=== PATIENT | male | born 1980 | race Caucasian/White ===

== ENCOUNTER 2019-02-01 11:42 | Emergency (ER) | payer MEDICARE, OTHER ==
[~2019-02-01] VITALS: Ht 185.4 cm; Wt 99.8 kg
[~2019-02-01 11:42] MED LIST: ARIP10; BENZ1; BENZ2; CEPH500 PO; CLON.5; CLOZ100; CLOZ25; DIPH50; DIVA250EC PO; DIVA500EC; DOCU100; DULO60; DULO60 PO; ESCI20; FLUO20 PO; HALDOL; HALO5; HYDACE25S PR; HYDACE5 PO; IBUP800 PO; NAPR550 PO; OXYACE5T PO; PARO20; PRAHYD1AE TOP; QUET200; RISP2; RISP3 PO; RISP4; RISP4 PO; RISPERDAL CONSTA IM; SERT50; SULTRIDS PO; TRAM50 PO; [UNRECOGNIZED DRUG - REMARK]; [UNRECOGNIZED DRUG - REMARK]
[2019-02-01] MEDS ORDERED: CHLO10T (14:11)
[2019-02-01] MEDS ORDERED: Anti-Diarrheal2 MG (14:11)
[2019-02-01] MEDS ORDERED: Benadryl 50 mg50 MG PO (14:20)
[2019-02-01] MEDS ORDERED: Pepcid40 MG PO (14:20)
[2019-02-01] MEDS ORDERED: PRED10 PO (14:20)
== END 2019-02-01 14:29 | disposition home or self-care (01) ==
LOC: ER 11:42
DX: L25.9 Unspecified contact dermatitis, unspecified cause (principal); F20.9 Schizophrenia, unspecified; F31.9 Bipolar disorder, unspecified; Z91.011 Allergy to milk products; Z79.899 Other long term (current) drug therapy
CPT/HCPCS: J7512; Q0163

== ENCOUNTER 2019-03-15 10:01 | Observation (INO) | payer MEDICARE, OTHER ==
[~2019-03-15] VITALS: Ht 182.9 cm; Wt 90.7 kg
[~2019-03-15 10:01] MED LIST changes: +Anti-Diarrheal2 MG; +Benadryl 50 mg50 MG PO; +CHLO10T; +PRED10 PO; +Pepcid40 MG PO
[2019-03-15 13:19] LABS: BASOPHILS ABSOLUTE AUTO 0.02 K/mm3 (0.00-0.23); BASOPHILS PERCENT AUTO 0 % (0-2); EOSINOPHILS ABSOLUTE AUTO 0.14 K/mm3 (0.00-0.68); EOSINOPHILS PERCENT AUTO 2 % (0-6); Hemoglobin 13.2 g/dL (13.5-17.5); IMMATURE GRAN ABSOLUTE AUTO 0.02 K/mm3 (0.00-0.10); IMMATURE GRAN PERCENT AUTO 0 % (0-1); LYMPHOCYTES ABSOLUTE AUTO 2.14 K/mm3 (0.84-5.20); LYMPHOCYTES PERCENT AUTO 29 % (21-46); MONOCYTES ABSOLUTE AUTO 0.54 K/mm3 (0.16-1.47); MONOCYTES PERCENT AUTO 7 % (4-13); Mean Corpuscular HGB 26.9 pg (26.0-34.0); Mean Corpuscular HGB Conc 32.2 g/dL (31.5-36.5); Mean Corpuscular Volume 84 fL (80-100); Mean Platelet Volume 11.7 fL (9.1-12.4); NEUTROPHILS ABSOLUTE AUTO 4.55 K/mm3 (1.96-9.15); NEUTROPHILS PERCENT AUTO 61 % (41-73); Platelet Count 219 K/mm3 (150-400); RDW Coefficient Variation 15.2 % (11.7-14.2); RDW Standard Deviation 46.7 fL (35.1-46.3); Red Blood Cell Count 4.91 M/mm3 (4.30-5.90); White Blood Cell Count 7.41 K/mm3 (4.00-11.30)
[2019-03-15 13:45] LABS: Acetaminophen, Random <2.0 ug/mL (10.0-30.0); Alanine Aminotransfer (ALT/SGP 15 U/L (12-78); Albumin, Blood 3.4 g/dL (3.4-5.0); Albumin/Globulin Ratio 1.2 (0.8-1.8); Alk Phos 71 U/L (50-136); Anion Gap 7 mmol/L (6-16); Aspartate Aminotrans (AST/SGOT 9 U/L (12-37); Bilirubin, Total 0.7 mg/dL (0.1-1.0); Blood Urea Nitrogen 13 mg/dL (8-24); Bun/Creatinine Ratio 17.4 (12.0-20.0); CO2, Blood 25 mmol/L (21-32); Calcium, Blood 8.4 mg/dL (8.5-10.1); Chloride, Blood 109 mmol/L (98-108); Creatinine, Blood 0.75 mg/dL (0.60-1.20); Ethanol (Alcohol), Blood, Med <3 mg/dL; Globulin, Blood 2.9 g/dL (2.2-4.0); Glomerular Filtration Rate >60 (60-); Glucose, Blood 78 mg/dL (70-99); Potassium, Blood 3.9 mmol/L (3.5-5.5); Salicylate 4.5 mg/dL (2.8-20.0); Sodium, Blood 141 mmol/L (136-145); Total Protein, Blood 6.3 g/dL (6.4-8.2)
[2019-03-15 13:50] LABS: Thyroid Stimulating Hormone 0.429 uIU/mL (0.360-4.800)
[2019-03-16 16:52] LABS: Source, Urine Voided
[2019-03-16 16:56] LABS: Blood, Urine Neg (Neg); Glucose Qualitative, Urine Neg (Neg); Ketones, Urine 1+ (Neg); Leukocyte Esterase, Urine 1+ (Neg); Nitrite, Urine Neg (Neg); Protein, Urine 1+ (Neg); Urobilinogen, Urine 2+ (Normal)
[2019-03-16 17:27] LABS: U Amphetamine Screen Not Detected; U Barbituate Screen Not Detected; U Benzodiazapine Screen Not Detected; U Buprenorphine Screen Not Detected; U Cannabinoids Screen Not Detected; U Cocaine Screen Not Detected; U Methadone Screen Not Detected; U Methamphetamine Screen Not Detected; U Opiates Screen Not Detected; U Oxycodone Screen Not Detected; U Phencyclidine Screen Not Detected; U Propoxyphene Screen Not Detected
[2019-03-16 17:37] LABS: Appearance, Urine Hazy (Clear); Bilirubin, Urine 1+ (Neg); Color, Urine Yellow (P-Yellow)
[2019-03-16 17:47] LABS: Bacteria Rare /hpf; Fatty Cast Rare /lpf (0); Mucus Mod (0-Heavy); Red Blood Cells, Urine 0-2 /hpf (0-2); Squamous Epithelial Cells Rare /hpf (Few)
[2019-03-19 00:14] LABS: Anion Gap 6 mmol/L (6-16); Blood Urea Nitrogen 14 mg/dL (8-24); Bun/Creatinine Ratio 18.6 (12.0-20.0); CO2, Blood 27 mmol/L (21-32); Calcium, Blood 8.1 mg/dL (8.5-10.1); Chloride, Blood 112 mmol/L (98-108); Creatinine, Blood 0.75 mg/dL (0.60-1.20); Glomerular Filtration Rate >60 (60-); Glucose, Blood 85 mg/dL (70-99); Sodium, Blood 145 mmol/L (136-145)
[2019-03-19 01:28] LABS: Source, Urine Clean Catch
[2019-03-19 01:33] LABS: Bilirubin, Urine Neg (Neg); Blood, Urine Neg (Neg); Glucose Qualitative, Urine Neg (Neg); Ketones, Urine Neg (Neg); Leukocyte Esterase, Urine Neg (Neg); Nitrite, Urine Neg (Neg); Protein, Urine Neg (Neg); Specific Gravity, Urine 1.005 (1.003-1.022); Urobilinogen, Urine NORM (Normal)
[2019-03-19 01:35] LABS: Appearance, Urine Clear (Clear); Color, Urine Pale Yellow (P-Yellow)
== END 2019-03-22 13:06 | disposition home or self-care (01) ==
LOC: ER 10:01 → EOR 10:02 → ER 10:02 → EOR 10:02 → ERHOLD 10:02 → EOR 03-22 13:06
PROVIDERS: Emergency Medicine; ADMIT Emergency Medicine
DX: F29 Unspecified psychosis not due to a substance or known physiological condition (principal); F32.9 Major depressive disorder, single episode, unspecified; F17.200 Nicotine dependence, unspecified, uncomplicated; F25.9 Schizoaffective disorder, unspecified; Z79.899 Other long term (current) drug therapy
CPT/HCPCS: 36415; 80048; 80053; 81001; 81003; 84443; 85025; 87086; 99285; G0378; G0480

== ENCOUNTER 2019-09-29 12:06 | Observation (INO) | payer MEDICARE, OTHER ==
[~2019-09-29] VITALS: Ht 188 cm; Wt 99.8 kg
[2019-09-29 14:56] LABS: BASOPHILS ABSOLUTE AUTO 0.05 K/mm3 (0.00-0.23); BASOPHILS PERCENT AUTO 0 % (0-2); EOSINOPHILS ABSOLUTE AUTO 0.21 K/mm3 (0.00-0.68); EOSINOPHILS PERCENT AUTO 2 % (0-6); Hematocrit 38.2 % (37.0-53.0); Hemoglobin 12.6 g/dL (13.5-17.5); IMMATURE GRAN ABSOLUTE AUTO 0.02 K/mm3 (0.00-0.10); IMMATURE GRAN PERCENT AUTO 0 % (0-1); LYMPHOCYTES ABSOLUTE AUTO 2.19 K/mm3 (0.84-5.20); LYMPHOCYTES PERCENT AUTO 19 % (21-46); MONOCYTES ABSOLUTE AUTO 0.89 K/mm3 (0.16-1.47); MONOCYTES PERCENT AUTO 8 % (4-13); Mean Corpuscular HGB 27.2 pg (26.0-34.0); Mean Corpuscular Volume 83 fL (80-100); Mean Platelet Volume 11.6 fL (9.1-12.4); NEUTROPHILS ABSOLUTE AUTO 8.07 K/mm3 (1.96-9.15); NEUTROPHILS PERCENT AUTO 71 % (41-73); Platelet Count 235 K/mm3 (150-400); RDW Coefficient Variation 13.8 % (11.7-14.2); RDW Standard Deviation 41.5 fL (35.1-46.3); Red Blood Cell Count 4.63 M/mm3 (4.30-5.90); White Blood Cell Count 11.43 K/mm3 (4.00-11.30)
[2019-09-29 15:23] LABS: Ethanol (Alcohol), Blood, Med <3 mg/dL; Salicylate <1.7 mg/dL (2.8-20.0)
[2019-09-29 15:24] LABS: Acetaminophen, Random <2.0 ug/mL (10.0-30.0); Alanine Aminotransfer (ALT/SGP 54 U/L (12-78); Albumin, Blood 3.4 g/dL (3.4-5.0); Albumin/Globulin Ratio 1.2 (0.8-1.8); Alk Phos 64 U/L (50-136); Anion Gap 6 mmol/L (6-16); Aspartate Aminotrans (AST/SGOT 80 U/L (12-37); Bilirubin, Total 0.2 mg/dL (0.1-1.0); Blood Urea Nitrogen 15 mg/dL (8-24); Bun/Creatinine Ratio 23.9 (12.0-20.0); CO2, Blood 23 mmol/L (21-32); Chloride, Blood 109 mmol/L (98-108); Creatinine, Blood 0.63 mg/dL (0.60-1.20); Globulin, Blood 2.9 g/dL (2.2-4.0); Glomerular Filtration Rate >60 (60-); Glucose, Blood 93 mg/dL (70-99); Potassium, Blood 3.1 mmol/L (3.5-5.5); Sodium, Blood 138 mmol/L (136-145); Total Protein, Blood 6.3 g/dL (6.4-8.2)
[2019-09-30] MEDS ORDERED: OLANZAPINE10 MG PO (10:12)
[2019-09-30 10:33] LABS: Source, Urine Clean Catch
[2019-09-30 10:42] LABS: Blood, Urine 1+ (Neg); Glucose Qualitative, Urine Neg (Neg); Ketones, Urine 1+ (Neg); Leukocyte Esterase, Urine 1+ (Neg); Nitrite, Urine Neg (Neg); Protein, Urine Neg (Neg); Specific Gravity, Urine 1.015 (1.003-1.022); Urobilinogen, Urine 2+ (Normal); pH, Urine 6.5 (5.0-8.0)
[2019-09-30 10:49] LABS: Appearance, Urine Clear (Clear); Bilirubin, Urine 1+ (Neg); Color, Urine Yellow (P-Yellow)
[2019-09-30 10:50] LABS: Red Blood Cells, Urine 0-2 /hpf (0-2)
[2019-09-30 10:51] LABS: Bacteria Mod /hpf; Squamous Epithelial Cells Rare /hpf (Few)
[2019-09-30 10:52] LABS: Mucus Light (0-Heavy); Yeast/Fungi Urine Few /hpf
[2019-09-30 10:53] LABS: U Amphetamine Screen Not Detected
[2019-09-30 10:54] LABS: U Barbituate Screen Not Detected; U Benzodiazapine Screen DETECTED; U Buprenorphine Screen Not Detected; U Cannabinoids Screen Not Detected; U Cocaine Screen Not Detected; U Methadone Screen Not Detected; U Methamphetamine Screen Not Detected; U Opiates Screen Not Detected; U Oxycodone Screen Not Detected; U Phencyclidine Screen Not Detected; U Propoxyphene Screen Not Detected
[2019-09-30 11:59] LABS: Thyroxine (T4) 9.4 ug/dL (4.5-12.1)
[2019-09-30 12:00] LABS: Thyroid Stimulating Hormone 0.923 uIU/mL (0.360-4.800)
== END 2019-10-02 18:24 | disposition home or self-care (01) ==
LOC: ER 12:06 → EOR 13:09
PROVIDERS: ADMIT Emergency Medicine
DX: F20.9 Schizophrenia, unspecified (principal); F17.200 Nicotine dependence, unspecified, uncomplicated; Z88.8 Allergy status to other drugs, medicaments and biological substances; Z91.011 Allergy to milk products
CPT/HCPCS: 80053; 81001; 84436; 84443; 85025; 87086; 96372; 99285-25; G0378; G0480; J1200; J1630; J2060

== ENCOUNTER 2019-10-11 14:58 | Observation (INO) | payer MEDICARE, OTHER ==
[~2019-10-11] VITALS: Ht 188 cm; Wt 81.7 kg
[~2019-10-11 14:58] MED LIST changes: +OLANZAPINE10 MG PO
[2019-10-11] MEDS ORDERED: SERT100 PO (15:40)
[2019-10-11] MEDS ORDERED: SERTRALINE HCL50 MG PO (16:16)
[2019-10-11] MEDS ORDERED: ATENOLOL25 MG PO (16:17)
[2019-10-11 16:59] LABS: BASOPHILS ABSOLUTE AUTO 0.04 K/mm3 (0.00-0.23); BASOPHILS PERCENT AUTO 0 % (0-2); EOSINOPHILS ABSOLUTE AUTO 0.19 K/mm3 (0.00-0.68); EOSINOPHILS PERCENT AUTO 2 % (0-6); Hematocrit 40.6 % (37.0-53.0); Hemoglobin 13.1 g/dL (13.5-17.5); IMMATURE GRAN ABSOLUTE AUTO 0.03 K/mm3 (0.00-0.10); IMMATURE GRAN PERCENT AUTO 0 % (0-1); LYMPHOCYTES ABSOLUTE AUTO 1.68 K/mm3 (0.84-5.20); LYMPHOCYTES PERCENT AUTO 18 % (21-46); MONOCYTES ABSOLUTE AUTO 0.71 K/mm3 (0.16-1.47); MONOCYTES PERCENT AUTO 8 % (4-13); Mean Corpuscular HGB 27.2 pg (26.0-34.0); Mean Corpuscular HGB Conc 32.3 g/dL (31.5-36.5); Mean Corpuscular Volume 84 fL (80-100); Mean Platelet Volume 11.3 fL (9.1-12.4); NEUTROPHILS ABSOLUTE AUTO 6.66 K/mm3 (1.96-9.15); NEUTROPHILS PERCENT AUTO 72 % (41-73); Platelet Count 276 K/mm3 (150-400); RDW Coefficient Variation 13.6 % (11.7-14.2); RDW Standard Deviation 42.2 fL (35.1-46.3); Red Blood Cell Count 4.81 M/mm3 (4.30-5.90); White Blood Cell Count 9.31 K/mm3 (4.00-11.30)
[2019-10-11 17:24] LABS: Source, Urine Clean Catch
[2019-10-11 17:27] LABS: Bilirubin, Urine Neg (Neg); Blood, Urine Neg (Neg); Glucose Qualitative, Urine Neg (Neg); Ketones, Urine Neg (Neg); Leukocyte Esterase, Urine Neg (Neg); Nitrite, Urine Neg (Neg); Protein, Urine Neg (Neg); Urobilinogen, Urine 1+ (Normal)
[2019-10-11 17:30] LABS: Acetaminophen, Random <2.0 ug/mL (10.0-30.0); Alanine Aminotransfer (ALT/SGP 34 U/L (12-78); Albumin, Blood 3.4 g/dL (3.4-5.0); Albumin/Globulin Ratio 1.1 (0.8-1.8); Alk Phos 70 U/L (50-136); Anion Gap 3 mmol/L (6-16); Aspartate Aminotrans (AST/SGOT 14 U/L (12-37); Bilirubin, Total 0.2 mg/dL (0.1-1.0); Blood Urea Nitrogen 12 mg/dL (8-24); Bun/Creatinine Ratio 19.3 (12.0-20.0); CO2, Blood 29 mmol/L (21-32); Calcium, Blood 8.5 mg/dL (8.5-10.1); Chloride, Blood 109 mmol/L (98-108); Creatinine, Blood 0.62 mg/dL (0.60-1.20); Ethanol (Alcohol), Blood, Med <3 mg/dL; Globulin, Blood 3.1 g/dL (2.2-4.0); Glomerular Filtration Rate >60 (60-); Glucose, Blood 87 mg/dL (70-99); Potassium, Blood 3.6 mmol/L (3.5-5.5); Salicylate 1.8 mg/dL (2.8-20.0); Sodium, Blood 141 mmol/L (136-145); Total Protein, Blood 6.5 g/dL (6.4-8.2)
[2019-10-11 17:37] LABS: Appearance, Urine Clear (Clear); Color, Urine Yellow (P-Yellow)
[2019-10-11 17:40] LABS: U Amphetamine Screen Not Detected; U Barbituate Screen Not Detected; U Benzodiazapine Screen Not Detected; U Buprenorphine Screen Not Detected; U Cannabinoids Screen Not Detected; U Cocaine Screen Not Detected; U Methadone Screen Not Detected; U Methamphetamine Screen Not Detected; U Opiates Screen Not Detected; U Oxycodone Screen Not Detected; U Propoxyphene Screen Not Detected
== END 2019-10-14 14:50 | disposition home or self-care (01) ==
LOC: ER 14:58 → EOR 16:12
PROVIDERS: Physician Assistant; ADMIT Emergency Medicine
DX: F23 Brief psychotic disorder (principal); F17.210 Nicotine dependence, cigarettes, uncomplicated; Z88.8 Allergy status to other drugs, medicaments and biological substances; Z59.0 Homelessness; Z91.14 Patient's other noncompliance with medication regimen
CPT/HCPCS: 80053; 81003; 84443; 85025; 96372; 99285-25; G0378; G0480

== ENCOUNTER 2020-09-28 13:20 | Inpatient (IN) | payer MEDICARE, OTHER ==
[~2020-09-28] VITALS: Ht 185.4 cm; Wt 103.1 kg
[~2020-09-28 13:20] MED LIST changes: +ATENOLOL25 MG PO; +SERT100 PO; +SERTRALINE HCL50 MG PO
[2020-09-28] MEDS ORDERED: Celexa20 MG PO (13:45)
[2020-09-28] MEDS ORDERED: OLANZAPINE PO (13:45)
[2020-09-28] MEDS ORDERED: HALOPERIDOL10 M1 PO (13:45)
[2020-09-28] MEDS ORDERED: LISI10 PO (13:46)
[2020-09-28] MEDS ORDERED: FLUPHENAZINE HC10 M1 PO (13:46)
[2020-09-28] MEDS ORDERED: DIVALPROEX SOD500 M1 PO (13:46)
[2020-09-28] MEDS ORDERED: CHLO50 PO (13:48)
[2020-09-28 14:05] LABS: Base Excess Venous -12.4 mmol/L; Bicarbonate Venous 17.3 mmol/L (24.0-30.0); PCO2 Venous 14.3 mmHg (38-42); PO2 Venous 193 mmHg (38-42); pH Blood Venous 7.49 (7.34-7.37)
[2020-09-28 14:12] LABS: BASOPHILS ABSOLUTE AUTO 0.02 K/mm3 (0.00-0.23); BASOPHILS PERCENT AUTO 0 % (0-2); EOSINOPHILS ABSOLUTE AUTO 0.01 K/mm3 (0.00-0.68); EOSINOPHILS PERCENT AUTO 0 % (0-6); Hematocrit 37.4 % (37.0-53.0); Hemoglobin 13.2 g/dL (13.5-17.5); IMMATURE GRAN PERCENT AUTO 1 % (0-1); LYMPHOCYTES ABSOLUTE AUTO 1.89 K/mm3 (0.84-5.20); LYMPHOCYTES PERCENT AUTO 9 % (21-46); MONOCYTES ABSOLUTE AUTO 1.98 K/mm3 (0.16-1.47); MONOCYTES PERCENT AUTO 9 % (4-13); Mean Corpuscular HGB 27.4 pg (26.0-34.0); Mean Corpuscular HGB Conc 35.3 g/dL (31.5-36.5); Mean Corpuscular Volume 78 fL (80-100); Mean Platelet Volume 11.5 fL (9.1-12.4); NEUTROPHILS ABSOLUTE AUTO 16.98 K/mm3 (1.96-9.15); NEUTROPHILS PERCENT AUTO 81 % (41-73); Platelet Count 210 K/mm3 (150-400); RDW Coefficient Variation 14.1 % (11.7-14.2); RDW Standard Deviation 39.7 fL (35.1-46.3); Red Blood Cell Count 4.81 M/mm3 (4.30-5.90); White Blood Cell Count 20.98 K/mm3 (4.00-11.30)
[2020-09-28 14:21] LABS: Source, Urine Clean Catch
[2020-09-28 14:26] LABS: Appearance, Urine Hazy (Clear); Bilirubin, Urine Neg (Neg); Blood, Urine 1+ (Neg); Color, Urine Yellow (P-Yellow); Glucose Qualitative, Urine 1+ (Neg); Ketones, Urine 1+ (Neg); Leukocyte Esterase, Urine 1+ (Neg); Nitrite, Urine Neg (Neg); Protein, Urine 3+ (Neg); Urobilinogen, Urine NORM (Normal)
[2020-09-28 14:36] LABS: Squamous Epithelial Cells Few /hpf (Few); White Blood Cells, Urine 25-50 /hpf (0-5)
[2020-09-28 14:37] LABS: Bacteria Mod /hpf
[2020-09-28 14:38] LABS: Hyaline Casts 0-2 /lpf (0-2); Transitional Epithelial Cells Few /hpf (0-Rare); WBC Cast 0-2 /lpf (0)
[2020-09-28 14:39] LABS: Acetaminophen, Random <2.0 ug/mL (10.0-30.0); Alanine Aminotransfer (ALT/SGP 24 U/L (12-78); Albumin, Blood 3.7 g/dL (3.4-5.0); Albumin/Globulin Ratio 1.1 (0.8-1.8); Alk Phos 62 U/L (50-136); Anion Gap 19 mmol/L (6-16); Aspartate Aminotrans (AST/SGOT 18 U/L (12-37); Bilirubin, Total 0.7 mg/dL (0.1-1.0); Blood Urea Nitrogen 53 mg/dL (8-24); Bun/Creatinine Ratio 20.5 (12.0-20.0); CO2, Blood 12 mmol/L (21-32); Calcium, Blood 6.8 mg/dL (8.5-10.1); Chloride, Blood 91 mmol/L (98-108); Creatinine, Blood 2.59 mg/dL (0.60-1.20); Ethanol (Alcohol), Blood, Med 4 mg/dL; Globulin, Blood 3.3 g/dL (2.2-4.0); Glomerular Filtration Rate 29 (60-); Glucose, Blood 107 mg/dL (70-99); Potassium, Blood 3.6 mmol/L (3.5-5.5); Sodium, Blood 122 mmol/L (136-145); Thyroid Stimulating Hormone 0.248 uIU/mL (0.360-4.800)
[2020-09-28 14:42] LABS: Salicylate 67.5 mg/dL (2.8-20.0)
[2020-09-28 14:54] LABS: U Amphetamine Screen Not Detected; U Barbituate Screen Not Detected; U Benzodiazapine Screen DETECTED; U Buprenorphine Screen Not Detected; U Cannabinoids Screen Not Detected; U Cocaine Screen Not Detected; U Methadone Screen Not Detected; U Methamphetamine Screen Not Detected; U Opiates Screen Not Detected; U Oxycodone Screen Not Detected; U Phencyclidine Screen Not Detected; U Propoxyphene Screen Not Detected
[2020-09-28] MEDS ORDERED: LISI20 PO (15:25)
[2020-09-28 16:27] LABS: Source, Urine Clean Catch
[2020-09-28 16:35] LABS: Appearance, Urine Hazy (Clear); Bilirubin, Urine Neg (Neg); Blood, Urine 1+ (Neg); Color, Urine Yellow (P-Yellow); Glucose Qualitative, Urine 1+ (Neg); Ketones, Urine Neg (Neg); Leukocyte Esterase, Urine 1+ (Neg); Nitrite, Urine Neg (Neg); Protein, Urine 3+ (Neg); Specific Gravity, Urine 1.015 (1.003-1.022); Urobilinogen, Urine NORM (Normal)
[2020-09-28 16:46] LABS: Squamous Epithelial Cells Rare /hpf (Few)
[2020-09-28 16:47] LABS: Bacteria Mod /hpf; Hyaline Casts 0-2 /lpf (0-2); Transitional Epithelial Cells Few /hpf (0-Rare)
[2020-09-28 16:48] LABS: Albumin, Blood 3.2 g/dL (3.4-5.0); Anion Gap 14 mmol/L (6-16); Blood Urea Nitrogen 55 mg/dL (8-24); Bun/Creatinine Ratio 21.5 (12.0-20.0); CO2, Blood 17 mmol/L (21-32); Calcium, Blood 6.6 mg/dL (8.5-10.1); Chloride, Blood 92 mmol/L (98-108); Creatinine, Blood 2.56 mg/dL (0.60-1.20); Glomerular Filtration Rate 30 (60-); Glucose, Blood 111 mg/dL (70-99); Potassium, Blood 3.3 mmol/L (3.5-5.5); Sodium, Blood 123 mmol/L (136-145)
[2020-09-28 16:52] LABS: PCO2 Arterial 21.1 mmHg (35-45); PO2 Arterial 91.5 mmHg (80-100); pH Blood Arterial 7.51 (7.35-7.45)
[2020-09-28 16:59] LABS: Osmolality, Serum 265 mos/KG (275-300)
[2020-09-28 17:04] LABS: Phosphorus, Blood 9.1 mg/dL (2.5-4.9); Salicylate 58.9 mg/dL (2.8-20.0)
[2020-09-28 17:11] LABS: Source, Urine Clean Catch
[2020-09-28 17:15] LABS: Appearance, Urine Clear (Clear); Bilirubin, Urine Neg (Neg); Blood, Urine 1+ (Neg); Color, Urine Yellow (P-Yellow); Glucose Qualitative, Urine 1+ (Neg); Ketones, Urine Neg (Neg); Leukocyte Esterase, Urine Neg (Neg); Nitrite, Urine Neg (Neg); Protein, Urine 3+ (Neg); Specific Gravity, Urine 1.015 (1.003-1.022); Urobilinogen, Urine NORM (Normal)
[2020-09-28 17:25] LABS: Hyaline Casts 0-2 /lpf (0-2)
[2020-09-28 17:27] LABS: WBC Cast Rare /lpf (0)
[2020-09-28 17:28] LABS: Bacteria Few /hpf; Squamous Epithelial Cells Few /hpf (Few)
[2020-09-28 17:42] LABS: Alanine Aminotransfer (ALT/SGP 21 U/L (12-78); Albumin, Blood 3.3 g/dL (3.4-5.0); Albumin/Globulin Ratio 1.1 (0.8-1.8); Alk Phos 54 U/L (50-136); Aspartate Aminotrans (AST/SGOT 17 U/L (12-37); Bilirubin, Direct <0.1 mg/dL (0.0-0.3); Bilirubin, Indirect Unable to Calculate mg/dL (0.1-0.7); Bilirubin, Total 0.6 mg/dL (0.1-1.0); Globulin, Blood 3.1 g/dL (2.2-4.0); Total Protein, Blood 6.4 g/dL (6.4-8.2)
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
--- NOTE | 2020-09-28 18:30 | NUR ---
CALLED DR. KINCAID AND UPDATED. ORDERS RECEIVED.
[2020-09-28 19:47] LABS: Albumin, Blood 3.3 g/dL (3.4-5.0); Anion Gap 14 mmol/L (6-16); Blood Urea Nitrogen 57 mg/dL (8-24); Bun/Creatinine Ratio 23.9 (12.0-20.0); CO2, Blood 16 mmol/L (21-32); Calcium, Blood 6.5 mg/dL (8.5-10.1); Chloride, Blood 92 mmol/L (98-108); Creatinine, Blood 2.38 mg/dL (0.60-1.20); Glomerular Filtration Rate 32 (60-); Glucose, Blood 95 mg/dL (70-99); Magnesium, Blood 1.9 mg/dL (1.6-2.4); Potassium, Blood 3.5 mmol/L (3.5-5.5); Sodium, Blood 122 mmol/L (136-145)
[2020-09-28 19:56] LABS: Phosphorus, Blood 8.2 mg/dL (2.5-4.9); Salicylate 56.2 mg/dL (2.8-20.0)
--- NOTE | 2020-09-28 20:00 | NUR ---
PT IN BED. WAS INITIALLY CALM AND COOPERATIVE BUT HE BECAME INCREASINGLY AGITATED AND HYPERFOCUSED ON HIS NPO STATUS. DOES NOT UNDERSTAND WHY HE CAN NOT HAVE FOOD AND WATER AT THIS TIME. AT ONE POINT HE GOT OUT OF BED AND REFUSED TO GO BACK TO BED. HE WAS CURSING AND CALLING NURSING STAFF NAMES. PT EVENTUALLY ALLOWED US TO PUT HIM BACK TO BED. AT THAT TIME A MARLENA VEST RESTRAINT WAS PLACED ON PT. HE REMAINED AGITATED, PULLING OFF BP CUFF. SWB RESTRAINTS PLACED ON PT. RATIONALE EXPLAINED TO PT. SBP HAS BEEN LOW 80-90S. PT HAS TWO PIVS. SODIUM BICARB WITH K+/D5W INFUSING AT 100MLS/HR. PT IS FLUSHED AND SWEATY. HE IS ALSO TACHYPNEIC. WILL CONTINUE TO [facility]
--- NOTE | 2020-09-28 20:24 | NUR ---
SPOKE TO POISON CONTROL RE UPDATE ON LABS. RECOMMENDED ORDERS FROM POISON CONTROL ARE: REPEAT EKG AT SOME POINT DURING NIGHT TO CHECK QRS/QTC. CHECK K+ AND ASA LEVELS Q2. GOAL K+ IS 4.0. IF PT BECOMES ALTERED GIVE AMP OF D50. MAY GIVE ACTIVATED CHARCOAL Q4 IF NECESSARY. IF SALICYLATE LEVEL >70 DIALYSIS IS RECOMMENDED. SPOKE WITH DR ESDRAS LUI LABS. HE WOULD LIKE A PHONE CALL BY MIDNIGHT WITH UPDATED K+, CO2, MAG.
[2020-09-28 22:04] LABS: Potassium, Blood 3.3 mmol/L (3.5-5.5); Salicylate 53.8 mg/dL (2.8-20.0)
[2020-09-28 23:28] LABS: Potassium, Blood 3.1 mmol/L (3.5-5.5); Salicylate 52.2 mg/dL (2.8-20.0)
--- NOTE | 2020-09-29 00:20 | NUR ---
POISON CONTROL AND DR DEWITT UPDATED ON PTS LABS
[2020-09-29 01:29] LABS: Potassium, Blood 3.1 mmol/L (3.5-5.5); Salicylate 50.6 mg/dL (2.8-20.0)
[2020-09-29 02:58] LABS: BASOPHILS ABSOLUTE AUTO 0.03 K/mm3 (0.00-0.23); BASOPHILS PERCENT AUTO 0 % (0-2); EOSINOPHILS ABSOLUTE AUTO 0.01 K/mm3 (0.00-0.68); EOSINOPHILS PERCENT AUTO 0 % (0-6); Hematocrit 35.7 % (37.0-53.0); Hemoglobin 12.6 g/dL (13.5-17.5); IMMATURE GRAN ABSOLUTE AUTO 0.04 K/mm3 (0.00-0.10); IMMATURE GRAN PERCENT AUTO 0 % (0-1); LYMPHOCYTES ABSOLUTE AUTO 2.01 K/mm3 (0.84-5.20); LYMPHOCYTES PERCENT AUTO 14 % (21-46); MONOCYTES PERCENT AUTO 11 % (4-13); Mean Corpuscular HGB 27.5 pg (26.0-34.0); Mean Corpuscular HGB Conc 35.3 g/dL (31.5-36.5); Mean Corpuscular Volume 78 fL (80-100); Mean Platelet Volume 11.5 fL (9.1-12.4); NEUTROPHILS ABSOLUTE AUTO 10.64 K/mm3 (1.96-9.15); NEUTROPHILS PERCENT AUTO 75 % (41-73); Platelet Count 205 K/mm3 (150-400); RDW Coefficient Variation 13.9 % (11.7-14.2); RDW Standard Deviation 39.4 fL (35.1-46.3); Red Blood Cell Count 4.59 M/mm3 (4.30-5.90); White Blood Cell Count 14.23 K/mm3 (4.00-11.30)
[2020-09-29 03:25] LABS: Albumin, Blood 3.2 g/dL (3.4-5.0); Albumin/Globulin Ratio 1.1 (0.8-1.8); Bilirubin, Total 0.4 mg/dL (0.1-1.0); Bun/Creatinine Ratio 28.6 (12.0-20.0); Calcium, Blood 6.2 mg/dL (8.5-10.1); Creatinine, Blood 2.17 mg/dL (0.60-1.20); Phosphorus, Blood 5.8 mg/dL (2.5-4.9); Potassium, Blood 3.1 mmol/L (3.5-5.5); Salicylate 49.9 mg/dL (2.8-20.0); Thyroid Stimulating Hormone 0.078 uIU/mL (0.360-4.800); Total Protein, Blood 6.2 g/dL (6.4-8.2); Uric Acid, Blood 3.5 mg/dL (3.5-7.2)
[2020-09-29 04:50] LABS: PCO2 Arterial 28.6 mmHg (35-45); PO2 Arterial 82.1 mmHg (80-100); pH Blood Arterial 7.51 (7.35-7.45)
--- NOTE | 2020-09-29 04:58 | NUR ---
SPOKE WITH POISON CONTROL AND GAVE UPDATES ON LABS, FLUIDS RUNNING, PT CONDITION. PER POISON CONTROL RECOMMENDATIONS BICARB SHOULD BE RUNNING AT, AT LEAST, 200MLS/HR TO CLEAR ASA. THE GTT SHOULD ALSO HAVE 40MEQ POTASSIUM. ALSO RECOMMENDED, D/T PT CONTINUED LOW POTASSIUM LEVELS, A 40MEQ KCL. GOAL IS K+ LEVELS TO BE >4.0. CALL PLACED TO DR PENNINGTON WITH POISON CONTROL'S RECOMMENDATION. ORDERS RECEIVED FROM GORGE TO FOLLOW POISON CONTROL'S RECOMMENDATIONS.
[2020-09-29 05:09] LABS: Potassium, Blood 2.9 mmol/L (3.5-5.5); Salicylate 48.9 mg/dL (2.8-20.0)
--- NOTE | 2020-09-29 06:13 | NUR ---
CALL FROM DR DEWITT FOR UPDATE ON PT LABS AND GTTS. NO NEW ORDERS RECEIVED
--- NOTE | 2020-09-29 06:18 | NUR ---
PT FOLLOWING DIRECTIONS WELL. LESS IMPULSIVE AND AGITATED. RESTRAINTS D/C. PT SLEPT GOOD PORTION OF SHIFT.
--- NOTE | 2020-09-29 06:29 | NUR ---
SPOKE WITH POISON CONTROL AND UPDATE WAS GIVEN. PT IS CURRENTLY RECEIVING SODIUM BICARB GTT WITH 40MEQS K+ AT 200MLS/HR AND 40MEQ IV KCL AT THIS TIME. NO NEW RECOMMENDATIONS RECEIVED
[2020-09-29 07:32] LABS: Potassium, Blood 3.1 mmol/L (3.5-5.5); Salicylate 47.1 mg/dL (2.8-20.0)
[2020-09-29 09:16] LABS: Potassium, Blood 3.3 mmol/L (3.5-5.5); Salicylate 45.7 mg/dL (2.8-20.0)
[2020-09-29 09:45] LABS: Alanine Aminotransfer (ALT/SGP 22 U/L (12-78); Albumin, Blood 3.3 g/dL (3.4-5.0); Alk Phos 60 U/L (50-136); Anion Gap 10 mmol/L (6-16); Aspartate Aminotrans (AST/SGOT 33 U/L (12-37); Bilirubin, Total 0.4 mg/dL (0.1-1.0); Blood Urea Nitrogen 51 mg/dL (8-24); Bun/Creatinine Ratio 32.5 (12.0-20.0); CO2, Blood 22 mmol/L (21-32); Calcium, Blood 6.8 mg/dL (8.5-10.1); Chloride, Blood 103 mmol/L (98-108); Creatinine, Blood 1.57 mg/dL (0.60-1.20); Globulin, Blood 3.3 g/dL (2.2-4.0); Glomerular Filtration Rate 52 (60-); Glucose, Blood 100 mg/dL (70-99); Potassium, Blood 3.3 mmol/L (3.5-5.5); Sodium, Blood 135 mmol/L (136-145); Total Protein, Blood 6.6 g/dL (6.4-8.2)
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
--- NOTE | 2020-09-29 11:05 | NUR ---
PT REPORTS HE IS CONTINUEING TO HAVE AUDITORY AND VISUAL HALLUCINATIONS AND REPORTS THAT "KALEB IS IN THE CORNER". WHEN ASKING ABOUT KALEB AND WHAT SHE'S DOING PT STATES "SHE'S SAYING RACIAL THINGS" PT CONFIRMS THAT WHAT KALEB IS SAYING IS DIRECTED AT HIM. PT REPORTED TO ROVER TENDER THAT "I DON'T LIKE WHAT KALEB IS DOING". PT DECLINES TO FURTHER CLARIFY. 1:1 SITTER REMAINS AT BEDSIDE. UPDATE FROM DENNIS WITH POISON CONTROL. IF NEXT SALICYLATE LEVEL CONTINUES TO DECREASE, LAB FREQUENCY MAY BE CHANGED TO Q 4-6 HOURS, UNTIL SALICYLATE LEVEL IS <30.
--- NOTE | 2020-09-29 11:10 | NUR ---
Patient on Involuntary Hold and a 1:1 sitter at bedside
[2020-09-29] MEDS ORDERED: DIPH25 PO (11:13)
[2020-09-29] MEDS ORDERED: LORA2 PO (11:14)
[2020-09-29] MEDS ORDERED: ACET500 PO (11:15)
[2020-09-29] MEDS ORDERED: CHLO50 PO (11:16)
[2020-09-29] MEDS ORDERED: OLAN5 PO (11:17)
[2020-09-29 11:23] LABS: Potassium, Blood 3.2 mmol/L (3.5-5.5); Salicylate 41.6 mg/dL (2.8-20.0)
[2020-09-29 11:27] LABS: Albumin, Blood 3.1 g/dL (3.4-5.0); Anion Gap 7 mmol/L (6-16); Blood Urea Nitrogen 45 mg/dL (8-24); Bun/Creatinine Ratio 30.6 (12.0-20.0); CO2, Blood 24 mmol/L (21-32); Calcium, Blood 6.9 mg/dL (8.5-10.1); Chloride, Blood 106 mmol/L (98-108); Creatinine, Blood 1.47 mg/dL (0.60-1.20); Glomerular Filtration Rate 56 (60-); Glucose, Blood 133 mg/dL (70-99); Magnesium, Blood 2.8 mg/dL (1.6-2.4); Potassium, Blood 3.2 mmol/L (3.5-5.5); Sodium, Blood 137 mmol/L (136-145)
--- NOTE | 2020-09-29 12:43 | NUR ---
REASSESSMENT PT RESTING IN BED, CONTINUES TO REPORT THAT KALEB, HIS HALLUCINATION, IS STILL IN THE ROOM. PT STATES "I DON'T WANT TO TALK ABOUT HER" WHEN INQUIRING MORE ABOUT KALEB. PT REPORTS THAT HE IS FEELING BETTER, DENIES NAUSEA AND IS ABLE TO TOLERATE MEALS. NOTIFIED DR THAT MEDICATION RECONCILIATION WAS COMPLETED AND IS UPTODATE. VITALS HAVE REMAINED STABLE, SINUS RHYTHM ON THE MONITOR. SALICYLATE LEVEL CONTINUES TO TREND DOWN. ORDERS RECEIVED TO CHANGE FREQUENCY OF LAB CHECKS.
--- NOTE | 2020-09-29 14:35 | NUR ---
SUICIDE PRECAUTIONS REDUCED TO LOW BY DR RAWLS. 1:1 SITTER REMOVED FROM BEDSIDE. PT PLACED ON REMOTE MONITOR CAMERAS PT REMAINS ON DR HOLD. UPDATED PT ON STATUS.
[2020-09-29 15:52] LABS: Potassium, Blood 3.3 mmol/L (3.5-5.5); Salicylate 32.9 mg/dL (2.8-20.0)
--- NOTE | 2020-09-29 16:51 | NUR ---
REASSESSMENT PT IS ALERT AND ORIENTED, REMAINS ON REMOTE CAMERA MONITORING. PT REPORTS THAT KALEB CONTINUES TO BE "UP IN THE CORNER", HOWEVER SHE CURRENTLY HASN'T BEEN BOTHERING HIM "SHE FEELS BAD FOR MAKING ME OD". SALICYLATE IMPROVING WITH RECENT LEVEL 32.9. POTASSIUM SLOWLY INCREASING AND CONTINUE TO REPLACE PER DR ORDERS. PT'S STATUS HAS BEEN CHANGED TO MEDICAL WITH TELEMETERY. VITALS HAVE BEEN STABLE.
--- NOTE | 2020-09-29 18:33 | NUR ---
SHIFT SUMMARY PT IS ALERT AND ORIENTEDx4, CALM AND COOPERATIVE, BUT IMPULSIVE GETTING OUT OF BED AT TIMES. ENCOURAGED PT TO UTILIZE CALL LIGHT WHEN NEEDING TO GET UP TO RESTROOM. PT CONTINUES TO HAVE AUDITORY AND VISUAL HALLUCINATIONS REPORTING THAT "KALEB IS SITTING UP IN THE CORNER". SALICYLATE LEVEL TRENDING DOWN, POTASSIUM LEVEL HAS BEEN REPLACED THROUGH OUT THE DAY. SEE EMAR. POISON CONTROL PLANS TO CHECK BACK ON PT STATUS AROUND 2100. PT HAS BEEN INDEPENDANT UP TO RESTROOM. PT'S SUICIDE PRECAUTIONS WERE LOWERED TO LOW TODAY, BUT REMAINS ON A HOLD. REMOTE CAMERA MONITORING REMAINS IN PLACE. PT'S RESPIRATORY RATE HAS BEEN DECREASING TODAY AND PT'S APPEARS LESS CLAMMY. VITALS HAVE REMAINED STABLE, SINUS RHYTHM ON THE MONITOR. PT IS MEDICAL WITH TELEMETERY STATUS.
[2020-09-29 19:34] LABS: PCO2 Arterial 33.4 mmHg (35-45); pH Blood Arterial 7.54 (7.35-7.45)
[2020-09-29 19:53] LABS: Albumin, Blood 3.2 g/dL (3.4-5.0); Anion Gap 3 mmol/L (6-16); Blood Urea Nitrogen 26 mg/dL (8-24); Bun/Creatinine Ratio 26.2 (12.0-20.0); CO2, Blood 28 mmol/L (21-32); Calcium, Blood 7.8 mg/dL (8.5-10.1); Chloride, Blood 110 mmol/L (98-108); Creatinine, Blood 0.99 mg/dL (0.60-1.20); Glomerular Filtration Rate >60 (60-); Glucose, Blood 119 mg/dL (70-99); Phosphorus, Blood 1.5 mg/dL (2.5-4.9); Potassium, Blood 3.8 mmol/L (3.5-5.5); Sodium, Blood 141 mmol/L (136-145)
--- NOTE | 2020-09-29 21:03 | NUR ---
SHIFT ASSESSMENT PT ALERT AND ORIENTED, REMAINS ON CAMERA MONITORING. CURRENTLY COOPERATIVE AND FRIENDLY, LAUGHING AT FAMILY ROM ON TV. TOLERATING DRINK WELL. PT OCCASIONALLY TALKING TO VAMPIRES IN THE ROOM, STATES "I AM A VAMPIRE, JUST FROM A DIFFERENT PLANET THAN THE VAMPIRES IN THE ROOM." PT ALSO STATED "I AM TALKING TO THE PEOPLE, I SEE THREE PEOPLE IN THE ROOM, THEY ARE ALWAYS AROUND." PT DENIES THOUGHTS OF INJURING SELF OR OTHERS. SALICYLATE LEVEL BELOW 30, POISON CONTROL UPDATED WELL DR DEWITT, SODIUM BICARBONATE ON STANDBY. WILL CONTINUE TO MONITOR.
--- NOTE | 2020-09-29 21:58 | NUR ---
UPDATE PT REQUESTED MORE SODA AND WATER, PT STATED "KALEB PUT SEMEN IN MY SODA". PROVIDED PT WITH FRESH SODA AND WATER.
--- NOTE | 2020-09-30 02:13 | NUR ---
UPDATE PT UP IN ROOM, REQUESTING A WET RAG TO WASH FACE. WET RAG PROVIDED TO PT. THIS NURSE ASKED PT IF HE IS ABLE TO SLEEP, PT STATED "NO I CAN'T, KALEB KEEPS RAPING ME". SHE IS PUTTING DICKS IN MY MOUTH. THAT IS WHY I TRIED TO KILL MYSELF".
[2020-09-30 03:38] LABS: Hematocrit 37.4 % (37.0-53.0); Hemoglobin 12.8 g/dL (13.5-17.5)
[2020-09-30 03:57] LABS: Albumin, Blood 3.1 g/dL (3.4-5.0); Anion Gap 6 mmol/L (6-16); Blood Urea Nitrogen 15 mg/dL (8-24); Bun/Creatinine Ratio 19.6 (12.0-20.0); CO2, Blood 26 mmol/L (21-32); Calcium, Blood 7.8 mg/dL (8.5-10.1); Chloride, Blood 108 mmol/L (98-108); Creatinine, Blood 0.76 mg/dL (0.60-1.20); Glomerular Filtration Rate >60 (60-); Glucose, Blood 155 mg/dL (70-99); Magnesium, Blood 2.5 mg/dL (1.6-2.4); Phosphorus, Blood 1.5 mg/dL (2.5-4.9); Potassium, Blood 3.3 mmol/L (3.5-5.5); Salicylate 11.9 mg/dL (2.8-20.0); Sodium, Blood 140 mmol/L (136-145)
--- NOTE | 2020-09-30 04:27 | NUR ---
UPDATE PT HAS NOT BEEN ABLE TO SLEEP. AT THE 0 ASSESSMENT, PT YELLING TOWARD THE CORNER OF THE ROOM. PT STATED "I AM TALKING TO KALEB, SHES IN THE CORNER".
--- NOTE | 2020-09-30 05:54 | NUR ---
SHIFT SUMMARY PT REMAINS ALERT AND ORIENTED. CALM, COOPERATIVE, AND FRIENDLY WITH STAFF. WHEN PT IS ALONE HE CAN BE HEARD YELLING IN THE ROOM. WHEN ASKED WHAT HE IS YELLING ABOUT, HE STATES KALEB IS TALKING TO HIM. PT DID NOT SLEEP, UP T/O THE NIGHT WATCHING TV. POISON CONTROL UPDATED, SALICYLATE LEVEL @ 0328 IS 11.9. NO OTHER SIGNIFICANT CHANGES IN PT CONDITION. WILL CONTINUE TO MONITOR, REPORT TO ONCOMING NURSE.
--- NOTE | 2020-09-30 07:57 | NUR ---
ASSUMED CARE OF PT. PT IS ALERT AND ORIENTEDx4, OVERALL APPEARS IMPROVED FROM PREVIOUS SHIFTS. DURING ASSESSMENT PT KEPT SAYING "SHUT UP". AFTER INQUIRING MORE FROM PT AND ASKING IF HE WAS TELLINGME TO SHUT UP, PT REPORTED "NO KALEB KEEPS INTERRUPTING AND I CAN'T HEAR YOU." PT ALSO REPORTS THAT KALEB CONTINUES TO BE SITTING UP IN THE CORNER OF THE ROOM. VITALS ARE STABLE. SALICYLATE LEVELS HAVE GREATLY IMPROVED. KPHOS CURRNTLY INFUSING TO REPLACE ELECTROLYTE LEVELS. MONITOR SHOS PT TO BE IN SINUS RHYTHM.
--- NOTE | 2020-09-30 12:56 | NUR ---
DISCHARGE INSTRUCTIONS GONE OVER WITH PT AND CAREGIVER. INSTRUCTED ON FOLLOW UP AND STOPPED PRESCRIPTIONS. BELONGINGS WERE GATHERED AND GIVEN TO PT. PT ESCORTED OUT BY RN TO AWAITING RIDE. PAPERWORK OF 2 MD HOLD REMOVAL WAS COMPLETED.
[2021-03-20] MEDS ORDERED: ONDA4ODT SL (10:16)
== END 2020-09-30 12:55 | disposition home or self-care (01) | DRG 917 ==
LOC: ER 13:20 → ICUW 15:10
PROVIDERS: Emergency Medicine; Internal Medicine; Internal Medicine Nephrology; Nurse Practitioner Acute Care; Student in an Organized Health Care Education/Training Program; ADMIT Hospitalist
DX: T39.1X2A Poisoning by 4-Aminophenol derivatives, intentional self-harm, initial encounter (principal); J18.9 Pneumonia, unspecified organism; G92 Toxic encephalopathy; E87.3 Alkalosis; E87.2 Acidosis; N17.9 Acute kidney failure, unspecified; E87.1 Hypo-osmolality and hyponatremia; J98.11 Atelectasis; F17.210 Nicotine dependence, cigarettes, uncomplicated; Y92.89 Other specified places as the place of occurrence of the external cause; E87.6 Hypokalemia; E83.39 Other disorders of phosphorus metabolism; D64.9 Anemia, unspecified; F25.9 Schizoaffective disorder, unspecified; E86.1 Hypovolemia; Z78.1 Physical restraint status
CPT/HCPCS: 36415; 36600; 71045; 76770; 80053; 80069; 80076; 81001; 82533; 82803; 83690; 83735; 83930; 84100; 84132; 84436; 84443; 84550; 85014; 85018; 85025; 87086; 93005; 93010; 96365; 96366; 96375; 96376; 99285-25; A9270; G0480; J1650; J2765; J3480; J7030; J7042; J7060

== ENCOUNTER 2020-10-11 09:01 | Emergency (ER) | payer MEDICARE, OTHER ==
[~2020-10-11] VITALS: Ht 182.9 cm; Wt 102.1 kg
[~2020-10-11 09:01] MED LIST changes: +ACET500 PO; +CHLO50 PO; +Celexa20 MG PO; +DIPH25 PO; +DIVALPROEX SOD500 M1 PO; +FLUPHENAZINE HC10 M1 PO; +HALOPERIDOL10 M1 PO; +LISI10 PO; +LISI20 PO; +LORA2 PO; +OLAN5 PO; +OLANZAPINE PO
[2021-03-20] MEDS ORDERED: ONDA4ODT SL (10:16)
== END 2020-10-11 15:36 | disposition home or self-care (01) ==
LOC: ER 09:01
DX: R44.0 Auditory hallucinations (principal); R44.1 Visual hallucinations; H92.02 Otalgia, left ear; I10 Essential (primary) hypertension; F17.200 Nicotine dependence, unspecified, uncomplicated; Z59.0 Homelessness; Z88.8 Allergy status to other drugs, medicaments and biological substances; Z79.899 Other long term (current) drug therapy
CPT/HCPCS: 99284; Q3014

== ENCOUNTER 2020-10-26 11:56 | Emergency (ER) | payer MEDICARE, OTHER ==
[~2020-10-26] VITALS: Ht 188 cm; Wt 104.3 kg
[2021-03-20] MEDS ORDERED: ONDA4ODT SL (10:16)
== END 2020-10-26 12:30 | disposition home or self-care (01) ==
LOC: ER 11:56
DX: S00.83XA Contusion of other part of head, initial encounter (principal); S20.219A Contusion of unspecified front wall of thorax, initial encounter; I10 Essential (primary) hypertension; F17.210 Nicotine dependence, cigarettes, uncomplicated; Z88.8 Allergy status to other drugs, medicaments and biological substances; Z79.899 Other long term (current) drug therapy; Y04.0XXA Assault by unarmed brawl or fight, initial encounter
CPT/HCPCS: 99284

== ENCOUNTER 2020-11-01 04:34 | Emergency (ER) | payer MEDICARE, OTHER ==
[~2020-11-01] VITALS: Ht 185.4 cm; Wt 104.3 kg
[2021-03-20] MEDS ORDERED: ONDA4ODT SL (10:16)
== END 2020-11-01 05:48 | disposition home or self-care (01) ==
LOC: ER 04:34
DX: F20.9 Schizophrenia, unspecified (principal); F17.200 Nicotine dependence, unspecified, uncomplicated; Z79.899 Other long term (current) drug therapy; Z88.8 Allergy status to other drugs, medicaments and biological substances
CPT/HCPCS: 99282

== ENCOUNTER 2020-11-15 10:31 | Observation (INO) | payer MEDICARE, OTHER ==
[~2020-11-15] VITALS: Ht 188 cm; Wt 99.8 kg
[2020-11-15 11:14] LABS: BASOPHILS ABSOLUTE AUTO 0.05 K/mm3 (0.00-0.23); BASOPHILS PERCENT AUTO 0 % (0-2); EOSINOPHILS ABSOLUTE AUTO 0.07 K/mm3 (0.00-0.68); EOSINOPHILS PERCENT AUTO 1 % (0-6); Hematocrit 45.5 % (37.0-53.0); Hemoglobin 15.1 g/dL (13.5-17.5); IMMATURE GRAN ABSOLUTE AUTO 0.03 K/mm3 (0.00-0.10); IMMATURE GRAN PERCENT AUTO 0 % (0-1); LYMPHOCYTES ABSOLUTE AUTO 2.44 K/mm3 (0.84-5.20); LYMPHOCYTES PERCENT AUTO 21 % (21-46); MONOCYTES PERCENT AUTO 5 % (4-13); Mean Corpuscular HGB 27.8 pg (26.0-34.0); Mean Corpuscular HGB Conc 33.2 g/dL (31.5-36.5); Mean Corpuscular Volume 84 fL (80-100); Mean Platelet Volume 11.2 fL (9.1-12.4); NEUTROPHILS ABSOLUTE AUTO 8.45 K/mm3 (1.96-9.15); NEUTROPHILS PERCENT AUTO 73 % (41-73); Platelet Count 334 K/mm3 (150-400); RDW Coefficient Variation 14.4 % (11.7-14.2); RDW Standard Deviation 43.5 fL (35.1-46.3); Red Blood Cell Count 5.44 M/mm3 (4.30-5.90); White Blood Cell Count 11.64 K/mm3 (4.00-11.30)
[2020-11-15 11:35] LABS: Acetaminophen, Random 43.9 ug/mL (10.0-30.0); Alanine Aminotransfer (ALT/SGP 26 U/L (12-78); Albumin/Globulin Ratio 1.1 (0.8-1.8); Alk Phos 165 U/L (50-136); Anion Gap 11 mmol/L (6-16); Aspartate Aminotrans (AST/SGOT 14 U/L (12-37); Bilirubin, Total 0.5 mg/dL (0.1-1.0); Blood Urea Nitrogen 5 mg/dL (8-24); Bun/Creatinine Ratio 8.2 (12.0-20.0); CO2, Blood 25 mmol/L (21-32); Calcium, Blood 8.8 mg/dL (8.5-10.1); Chloride, Blood 99 mmol/L (98-108); Creatinine, Blood 0.61 mg/dL (0.60-1.20); Ethanol (Alcohol), Blood, Med 111 mg/dL; Globulin, Blood 3.8 g/dL (2.2-4.0); Glomerular Filtration Rate >60 (60-); Glucose, Blood 90 mg/dL (70-99); Potassium, Blood 3.5 mmol/L (3.5-5.5); Salicylate 3.7 mg/dL (2.8-20.0); Sodium, Blood 135 mmol/L (136-145); Thyroid Stimulating Hormone 0.744 uIU/mL (0.360-4.800); Thyroxine (T4) 10.2 ug/dL (4.5-12.1); Total Protein, Blood 7.8 g/dL (6.4-8.2)
[2020-11-15 11:46] LABS: U Amphetamine Screen Not Detected; U Barbituate Screen Not Detected; U Benzodiazapine Screen DETECTED; U Buprenorphine Screen Not Detected; U Cannabinoids Screen Not Detected; U Cocaine Screen Not Detected; U Methadone Screen Not Detected; U Methamphetamine Screen Not Detected; U Opiates Screen Not Detected; U Oxycodone Screen Not Detected; U Phencyclidine Screen Not Detected; U Propoxyphene Screen Not Detected
[2020-11-15 13:26] LABS: Influenza A, PCR NEGATIVE (NEGATIVE); Influenza B, PCR NEGATIVE (NEGATIVE); Resp Syncytial Virus, PCR NEGATIVE (NEGATIVE); SARS-Cov-2 (COVID-19) PCR, MMC NEGATIVE (NEGATIVE)
[2020-11-15 15:31] LABS: Valproic Acid 73.7 ug/mL (50.0-100.0)
[2021-03-20] MEDS ORDERED: ONDA4ODT SL (10:16)
== END 2020-11-16 15:15 | disposition home or self-care (01) ==
LOC: ER 10:31 → EOR 10:32
PROVIDERS: Emergency Medicine; ADMIT Emergency Medicine
DX: F25.0 Schizoaffective disorder, bipolar type (principal); T39.1X2A Poisoning by 4-Aminophenol derivatives, intentional self-harm, initial encounter; I10 Essential (primary) hypertension; F17.210 Nicotine dependence, cigarettes, uncomplicated; Z88.8 Allergy status to other drugs, medicaments and biological substances; Z91.011 Allergy to milk products; Z20.822 Contact with and (suspected) exposure to COVID-19
CPT/HCPCS: 0241U; 36415; 80053; 80164; 84436; 84443; 85025; 93005; 93010; 99285-25; G0378; G0480; Q3014

== ENCOUNTER 2021-03-03 16:45 | Emergency (ER) | payer MEDICARE, OTHER ==
[~2021-03-03] VITALS: Ht 185.4 cm; Wt 93.0 kg
[2021-03-20] MEDS ORDERED: ONDA4ODT SL (10:16)
== END 2021-03-03 18:36 | disposition home or self-care (01) ==
LOC: ER 16:45
DX: G44.209 Tension-type headache, unspecified, not intractable (principal); E86.0 Dehydration; F17.210 Nicotine dependence, cigarettes, uncomplicated; Z88.8 Allergy status to other drugs, medicaments and biological substances; Z79.899 Other long term (current) drug therapy
CPT/HCPCS: 96374; 99283-25; A9270; J1885; J7030

== ENCOUNTER 2021-03-20 07:17 | Emergency (ER) | payer MEDICARE, OTHER | END 2021-03-20 10:22 | disposition home or self-care (01) | LOC: ER 07:17 | DX: F20.9 Schizophrenia, unspecified (principal); R11.10 Vomiting, unspecified; F17.210 Nicotine dependence, cigarettes, uncomplicated; Z88.8 Allergy status to other drugs, medicaments and biological substances ==

== ENCOUNTER 2021-03-24 18:01 | Observation (INO) | payer MEDICARE, OTHER ==
[~2021-03-24] VITALS: Ht 175.3 cm; Wt 79.4 kg
[~2021-03-24 18:01] MED LIST changes: +ONDA4ODT SL
[2021-03-24 18:52] LABS: BASOPHILS ABSOLUTE AUTO 0.04 K/mm3 (0.00-0.23); BASOPHILS PERCENT AUTO 1 % (0-2); EOSINOPHILS ABSOLUTE AUTO 0.17 K/mm3 (0.00-0.68); EOSINOPHILS PERCENT AUTO 2 % (0-6); Hematocrit 38.6 % (37.0-53.0); Hemoglobin 13.3 g/dL (13.5-17.5); IMMATURE GRAN ABSOLUTE AUTO 0.01 K/mm3 (0.00-0.10); IMMATURE GRAN PERCENT AUTO 0 % (0-1); LYMPHOCYTES ABSOLUTE AUTO 2.92 K/mm3 (0.84-5.20); LYMPHOCYTES PERCENT AUTO 42 % (21-46); MONOCYTES ABSOLUTE AUTO 0.61 K/mm3 (0.16-1.47); MONOCYTES PERCENT AUTO 9 % (4-13); Mean Corpuscular HGB 28.3 pg (26.0-34.0); Mean Corpuscular HGB Conc 34.5 g/dL (31.5-36.5); Mean Corpuscular Volume 82 fL (80-100); Mean Platelet Volume 10.9 fL (9.1-12.4); NEUTROPHILS ABSOLUTE AUTO 3.22 K/mm3 (1.96-9.15); NEUTROPHILS PERCENT AUTO 46 % (41-73); Platelet Count 256 K/mm3 (150-400); RDW Coefficient Variation 13.4 % (11.7-14.2); RDW Standard Deviation 39.9 fL (35.1-46.3); White Blood Cell Count 6.97 K/mm3 (4.00-11.30)
[2021-03-24 19:08] LABS: Alanine Aminotransfer (ALT/SGP 20 U/L (12-78); Albumin, Blood 3.7 g/dL (3.4-5.0); Albumin/Globulin Ratio 1.2 (0.8-1.8); Alk Phos 54 U/L (50-136); Anion Gap 4 mmol/L (6-16); Aspartate Aminotrans (AST/SGOT 15 U/L (12-37); Bilirubin, Total 0.2 mg/dL (0.1-1.0); Blood Urea Nitrogen 17 mg/dL (8-24); Bun/Creatinine Ratio 25.2 (12.0-20.0); CO2, Blood 26 mmol/L (21-32); Calcium, Blood 8.5 mg/dL (8.5-10.1); Chloride, Blood 108 mmol/L (98-108); Creatinine, Blood 0.67 mg/dL (0.60-1.20); Ethanol (Alcohol), Blood, Med <3 mg/dL; Glomerular Filtration Rate >60 (60-); Glucose, Blood 81 mg/dL (70-99); Potassium, Blood 3.1 mmol/L (3.5-5.5); Salicylate 6.2 mg/dL (2.8-20.0); Sodium, Blood 138 mmol/L (136-145); Total Protein, Blood 6.7 g/dL (6.4-8.2)
[2021-03-24 19:14] LABS: Acetaminophen, Random <2.0 ug/mL (10.0-30.0)
[2021-03-24 19:47] LABS: U Amphetamine Screen Not Detected; U Barbituate Screen Not Detected; U Benzodiazapine Screen DETECTED; U Buprenorphine Screen Not Detected; U Cannabinoids Screen Not Detected; U Cocaine Screen Not Detected; U Methadone Screen Not Detected; U Methamphetamine Screen Not Detected; U Opiates Screen Not Detected; U Oxycodone Screen Not Detected; U Phencyclidine Screen Not Detected; U Propoxyphene Screen Not Detected
[2021-03-24 20:34] LABS: SARS-Cov-2 (COVID-19) PCR, MMC NEGATIVE (NEGATIVE)
[2021-03-27 00:35] LABS: Source, Urine Clean Catch
[2021-03-27 00:37] LABS: Appearance, Urine Clear (Clear); Bilirubin, Urine Neg (Neg); Blood, Urine Neg (Neg); Color, Urine Yellow (P-Yellow); Glucose Qualitative, Urine Neg (Neg); Ketones, Urine Neg (Neg); Leukocyte Esterase, Urine Neg (Neg); Nitrite, Urine Neg (Neg); Protein, Urine Neg (Neg); Urobilinogen, Urine NORM (Normal)
[2021-03-27 11:29] LABS: Anion Gap 6 mmol/L (6-16); Blood Urea Nitrogen 11 mg/dL (8-24); Bun/Creatinine Ratio 15.6 (12.0-20.0); CO2, Blood 25 mmol/L (21-32); Calcium, Blood 8.7 mg/dL (8.5-10.1); Chloride, Blood 110 mmol/L (98-108); Creatinine, Blood 0.71 mg/dL (0.60-1.20); Glomerular Filtration Rate >60 (60-); Glucose, Blood 83 mg/dL (70-99); Potassium, Blood 4.2 mmol/L (3.5-5.5); Sodium, Blood 141 mmol/L (136-145)
== END 2021-03-27 17:00 ==
LOC: ER 18:01 → EOR 18:02
PROVIDERS: Emergency Medicine; Physician Assistant; ADMIT Emergency Medicine
DX: T39.012A Poisoning by aspirin, intentional self-harm, initial encounter (principal); F25.0 Schizoaffective disorder, bipolar type; F19.10 Other psychoactive substance abuse, uncomplicated; F17.210 Nicotine dependence, cigarettes, uncomplicated; I10 Essential (primary) hypertension; E78.5 Hyperlipidemia, unspecified; Z91.5 Personal history of self-harm; Z88.8 Allergy status to other drugs, medicaments and biological substances; Z20.822 Contact with and (suspected) exposure to COVID-19
CPT/HCPCS: 80048; 80053; 81003; 85025; 93005; 93010; 96372; 96374; 99285-25; A9270; G0378; G0480; J1200; J1630; J2060; Q3014; U0004

== ENCOUNTER 2022-06-12 10:38 | Emergency (ER) | payer MEDICARE, OTHER ==
[~2022-06-12] VITALS: Ht 182.9 cm; Wt 74.8 kg
== END 2022-06-12 13:40 | disposition left against medical advice (07) ==
LOC: ER 10:38
DX: R51.9 Headache, unspecified (principal); Z79.899 Other long term (current) drug therapy; Z53.21 Procedure and treatment not carried out due to patient leaving prior to being seen by health care provider
CPT/HCPCS: 99281

== ENCOUNTER 2022-07-17 23:58 | Emergency (ER) | payer MEDICARE, OTHER ==
[~2022-07-17] VITALS: Ht 185.4 cm; Wt 97.5 kg
== END 2022-07-18 01:00 | disposition home or self-care (01) ==
LOC: ER 23:58
DX: L84 Corns and callosities (principal); F17.210 Nicotine dependence, cigarettes, uncomplicated; Z88.8 Allergy status to other drugs, medicaments and biological substances; Z79.899 Other long term (current) drug therapy
CPT/HCPCS: 99283

== ENCOUNTER 2022-08-04 04:38 | Emergency (ER) | payer MEDICARE, OTHER ==
[~2022-08-04] VITALS: Ht 182.9 cm; Wt 90.7 kg
== END 2022-08-04 06:41 | disposition home or self-care (01) ==
LOC: ER 04:38
DX: M79.671 Pain in right foot (principal); M79.672 Pain in left foot; F17.210 Nicotine dependence, cigarettes, uncomplicated; Z88.8 Allergy status to other drugs, medicaments and biological substances; Z79.899 Other long term (current) drug therapy
CPT/HCPCS: 99282

== ENCOUNTER 2022-08-18 13:24 | Emergency (ER) | payer MEDICARE, OTHER ==
[~2022-08-18] VITALS: Ht 185.4 cm; Wt 86.2 kg
== END 2022-08-18 17:00 | disposition home or self-care (01) ==
LOC: ER 13:24
DX: R51.9 Headache, unspecified (principal); F17.210 Nicotine dependence, cigarettes, uncomplicated; Z79.899 Other long term (current) drug therapy; Z88.8 Allergy status to other drugs, medicaments and biological substances
CPT/HCPCS: A9270

== ENCOUNTER 2022-11-17 17:24 | Emergency (ER) | payer MEDICARE, OTHER ==
[~2022-11-17] VITALS: Ht 185.4 cm; Wt 81.7 kg
[2022-11-17] MEDS ORDERED: IBUP600 PO (18:06)
== END 2022-11-17 18:14 | disposition home or self-care (01) ==
LOC: ER 17:24
DX: R51.9 Headache, unspecified (principal); F25.9 Schizoaffective disorder, unspecified; F31.9 Bipolar disorder, unspecified; F17.210 Nicotine dependence, cigarettes, uncomplicated; Z88.8 Allergy status to other drugs, medicaments and biological substances; Z79.899 Other long term (current) drug therapy
CPT/HCPCS: A9270

== ENCOUNTER 2023-01-23 10:03 | Emergency (ER) | payer MEDICARE, OTHER ==
[~2023-01-23] VITALS: Ht 185.4 cm; Wt 81.7 kg
[~2023-01-23 10:03] MED LIST changes: +IBUP600 PO
[2023-01-23 10:09] VITALS: BP 150/93
[2023-01-23 10:30] LABS: BASOPHILS ABSOLUTE AUTO 0.06 K/mm3 (0.00-0.23); BASOPHILS PERCENT AUTO 1 % (0-2); EOSINOPHILS ABSOLUTE AUTO 0.16 K/mm3 (0.00-0.68); EOSINOPHILS PERCENT AUTO 2 % (0-6); Hematocrit 40.2 % (37.0-53.0); Hemoglobin 13.2 g/dL (13.5-17.5); IMMATURE GRAN ABSOLUTE AUTO 0.01 K/mm3 (0.00-0.10); IMMATURE GRAN PERCENT AUTO 0 % (0-1); LYMPHOCYTES ABSOLUTE AUTO 2.13 K/mm3 (0.84-5.20); LYMPHOCYTES PERCENT AUTO 28 % (21-46); MONOCYTES ABSOLUTE AUTO 0.45 K/mm3 (0.16-1.47); MONOCYTES PERCENT AUTO 6 % (4-13); Mean Corpuscular HGB 27.3 pg (26.0-34.0); Mean Corpuscular HGB Conc 32.8 g/dL (31.5-36.5); Mean Corpuscular Volume 83 fL (80-100); Mean Platelet Volume 10.1 fL (9.1-12.4); NEUTROPHILS PERCENT AUTO 63 % (41-73); Platelet Count 328 K/mm3 (150-400); RDW Coefficient Variation 13.6 % (11.7-14.2); RDW Standard Deviation 41.9 fL (35.1-46.3); Red Blood Cell Count 4.83 M/mm3 (4.30-5.90); White Blood Cell Count 7.51 K/mm3 (4.00-11.30)
[2023-01-23 10:57] LABS: Alanine Aminotransfer (ALT/SGP 26 U/L (12-78); Albumin, Blood 3.7 g/dL (3.4-5.0); Albumin/Globulin Ratio 1.2 (0.8-1.8); Alk Phos 62 U/L (50-136); Anion Gap 5 mmol/L (6-16); Aspartate Aminotrans (AST/SGOT 16 U/L (12-37); Bilirubin, Total 0.6 mg/dL (0.1-1.0); Blood Urea Nitrogen 17 mg/dL (8-24); Bun/Creatinine Ratio 24.6 (12.0-20.0); C-REACTIVE PROTEIN, EXT RANGE <0.290 mg/dL (0.000-0.300); CO2, Blood 25 mmol/L (21-32); Calcium, Blood 8.9 mg/dL (8.5-10.1); Chloride, Blood 110 mmol/L (98-108); Creatinine, Blood 0.69 mg/dL (0.60-1.20); Globulin, Blood 3.2 g/dL (2.2-4.0); Glomerular Filtration Rate 118 (60-); Glucose, Blood 151 mg/dL (70-99); Potassium, Blood 3.9 mmol/L (3.5-5.5); Sodium, Blood 140 mmol/L (136-145); Total Protein, Blood 6.9 g/dL (6.4-8.2)
== END 2023-01-23 11:46 | disposition left against medical advice (07) ==
LOC: ER 10:03
PROVIDERS: Physician Assistant
DX: R11.0 Nausea (principal); R51.9 Headache, unspecified; Z53.21 Procedure and treatment not carried out due to patient leaving prior to being seen by health care provider; Z88.8 Allergy status to other drugs, medicaments and biological substances
CPT/HCPCS: 80053; 85025; 86140

== ENCOUNTER 2023-02-28 13:12 | Emergency (ER) | payer MEDICARE, OTHER ==
[~2023-02-28] VITALS: Ht 185.4 cm; Wt 81.7 kg
[2023-02-28 13:54] VITALS: BP 151/103
[2023-02-28] MEDS ORDERED: ANTIFUNGAL30 GM TOP (13:59)
== END 2023-02-28 14:20 | disposition home or self-care (01) ==
LOC: ER 13:12
DX: B35.3 Tinea pedis (principal); F17.210 Nicotine dependence, cigarettes, uncomplicated; Z79.899 Other long term (current) drug therapy; Z86.59 Personal history of other mental and behavioral disorders
CPT/HCPCS: 99282; A9270

== ENCOUNTER 2023-03-04 06:56 | Emergency (ER) | payer MEDICARE, OTHER ==
[~2023-03-04] VITALS: Ht 185.4 cm; Wt 81.7 kg
[~2023-03-04 06:56] MED LIST changes: +ANTIFUNGAL30 GM TOP
[2023-03-04 07:07] VITALS: BP 148/93
[2023-03-04] MEDS ORDERED: IBUP600 PO (07:21)
== END 2023-03-04 07:30 | disposition home or self-care (01) ==
LOC: ER 06:56
DX: S90.822A Blister (nonthermal), left foot, initial encounter (principal); S90.821A Blister (nonthermal), right foot, initial encounter; F17.210 Nicotine dependence, cigarettes, uncomplicated; Z88.8 Allergy status to other drugs, medicaments and biological substances; X58.XXXA Exposure to other specified factors, initial encounter
CPT/HCPCS: 99282; A9270

== ENCOUNTER 2023-03-06 17:15 | Emergency (ER) | payer MEDICARE, OTHER ==
[~2023-03-06] VITALS: Ht 185.4 cm; Wt 76.2 kg
[2023-03-06 17:49] VITALS: BP 156/104
[2023-03-06] MEDS ORDERED: IBUP400 PO (17:51)
== END 2023-03-06 17:52 | disposition home or self-care (01) ==
LOC: ER 17:15
DX: L55.0 Sunburn of first degree (principal); F17.210 Nicotine dependence, cigarettes, uncomplicated; Z88.8 Allergy status to other drugs, medicaments and biological substances
CPT/HCPCS: 99282

== ENCOUNTER 2023-05-17 11:34 | Observation (INO) | payer MEDICARE, OTHER ==
[~2023-05-17] VITALS: Ht 182.9 cm; Wt 83.9 kg
[~2023-05-17 11:34] MED LIST changes: +IBUP400 PO
[2023-05-17 12:33] LABS: Source, Urine Clean Catch
[2023-05-17 12:57] LABS: BASOPHILS ABSOLUTE AUTO 0.04 K/mm3 (0.00-0.23); BASOPHILS PERCENT AUTO 1 % (0-2); EOSINOPHILS ABSOLUTE AUTO 0.05 K/mm3 (0.00-0.68); EOSINOPHILS PERCENT AUTO 1 % (0-6); Hemoglobin 11.2 g/dL (13.5-17.5); IMMATURE GRAN ABSOLUTE AUTO 0.02 K/mm3 (0.00-0.10); IMMATURE GRAN PERCENT AUTO 0 % (0-1); LYMPHOCYTES ABSOLUTE AUTO 1.24 K/mm3 (0.84-5.20); LYMPHOCYTES PERCENT AUTO 14 % (21-46); MONOCYTES ABSOLUTE AUTO 0.66 K/mm3 (0.16-1.47); MONOCYTES PERCENT AUTO 8 % (4-13); Mean Corpuscular HGB 28.1 pg (26.0-34.0); Mean Corpuscular HGB Conc 32.9 g/dL (31.5-36.5); Mean Corpuscular Volume 85 fL (80-100); Mean Platelet Volume 10.3 fL (9.1-12.4); NEUTROPHILS ABSOLUTE AUTO 6.76 K/mm3 (1.96-9.15); NEUTROPHILS PERCENT AUTO 77 % (41-73); Platelet Count 338 K/mm3 (150-400); RDW Coefficient Variation 14.5 % (11.7-14.2); RDW Standard Deviation 44.6 fL (35.1-46.3); Red Blood Cell Count 3.99 M/mm3 (4.30-5.90); White Blood Cell Count 8.77 K/mm3 (4.00-11.30)
[2023-05-17 12:57] LABS: Bilirubin, Urine Neg (Neg); Blood, Urine Neg (Neg); Glucose Qualitative, Urine Neg (Neg); Ketones, Urine Neg (Neg); Leukocyte Esterase, Urine Neg (Neg); Nitrite, Urine Neg (Neg); Protein, Urine Neg (Neg); Urobilinogen, Urine NORM (Normal)
[2023-05-17 13:04] LABS: Appearance, Urine Clear (Clear); Color, Urine Yellow (P-Yellow)
[2023-05-17 13:21] LABS: Ethanol (Alcohol), Blood, Med <3 mg/dL; Salicylate 2.6 mg/dL (2.8-20.0)
[2023-05-17 13:23] LABS: U Amphetamine Screen Not Detected; U Barbituate Screen Not Detected; U Benzodiazapine Screen Not Detected; U Buprenorphine Screen Not Detected; U Cannabinoids Screen Not Detected; U Cocaine Screen Not Detected; U Methadone Screen Not Detected; U Methamphetamine Screen Not Detected; U Opiates Screen Not Detected; U Oxycodone Screen Not Detected; U Phencyclidine Screen Not Detected; U Propoxyphene Screen Not Detected
[2023-05-17 13:23] LABS: Acetaminophen, Random <2.0 ug/mL (10.0-30.0); Alanine Aminotransfer (ALT/SGP 17 U/L (12-78); Albumin, Blood 3.2 g/dL (3.4-5.0); Albumin/Globulin Ratio 0.9 (0.8-1.8); Alk Phos 75 U/L (50-136); Anion Gap 6 mmol/L (6-16); Aspartate Aminotrans (AST/SGOT 18 U/L (12-37); Bilirubin, Total 0.5 mg/dL (0.1-1.0); Blood Urea Nitrogen 13 mg/dL (8-24); Bun/Creatinine Ratio 18.7 (12.0-20.0); CO2, Blood 25 mmol/L (21-32); Calcium, Blood 8.2 mg/dL (8.5-10.1); Chloride, Blood 106 mmol/L (98-108); Globulin, Blood 3.4 g/dL (2.2-4.0); Glomerular Filtration Rate 117 (60-); Glucose, Blood 100 mg/dL (70-99); Potassium, Blood 4.2 mmol/L (3.5-5.5); Sodium, Blood 137 mmol/L (136-145); Total Protein, Blood 6.6 g/dL (6.4-8.2)
[2023-05-18 09:13] VITALS: BP 129/80
== END 2023-05-18 09:14 | disposition home or self-care (01) ==
LOC: ER 11:34 → EOR 11:35
PROVIDERS: Student in an Organized Health Care Education/Training Program; ADMIT Emergency Medicine
DX: F31.9 Bipolar disorder, unspecified (principal); Z88.8 Allergy status to other drugs, medicaments and biological substances; F20.9 Schizophrenia, unspecified
CPT/HCPCS: 80053; 81003; 85025; 86592; 93005; 93010; 96372; 99285-25; A9270; G0378; G0480; J2680

== ENCOUNTER 2023-08-05 16:42 | Observation (INO) | payer MEDICARE, OTHER ==
[~2023-08-05] VITALS: Ht 182.9 cm; Wt 72.6 kg
[2023-08-05] MEDS ORDERED: BENZTROPINE MESY1 M6 PO (17:14)
[2023-08-05] MEDS ORDERED: ZESTRIL40 M2 PO (17:14)
[2023-08-05] MEDS ORDERED: HALOPERIDOL10 M2 PO (17:14)
[2023-08-05] MEDS ORDERED: [UNRECOGNIZED DRUG - OTHER] PO (17:14)
[2023-08-05] MEDS ORDERED: DIVALPROEX SOD500 M2 PO (17:14)
[2023-08-05] MEDS ORDERED: IBUP400 PO (17:15)
[2023-08-05] MEDS ORDERED: OLAN20 MM (17:15)
[2023-08-05] MEDS ORDERED: BANOPHEN50 M1 (17:30)
[2023-08-05 17:51] LABS: Source, Urine Foley catheter
[2023-08-05 18:00] LABS: Appearance, Urine Clear (Clear); Bilirubin, Urine Neg (Neg); Blood, Urine Neg (Neg); Glucose Qualitative, Urine Neg (Neg); Ketones, Urine Neg (Neg); Leukocyte Esterase, Urine Neg (Neg); Nitrite, Urine Neg (Neg); Protein, Urine Neg (Neg); Specific Gravity, Urine 1.015 (1.003-1.022); Urobilinogen, Urine NORM (Normal)
[2023-08-05 18:02] LABS: Color, Urine Pale Yellow (P-Yellow)
[2023-08-05 18:08] LABS: BASOPHILS ABSOLUTE AUTO 0.06 K/mm3 (0.00-0.23); BASOPHILS PERCENT AUTO 1 % (0-2); EOSINOPHILS ABSOLUTE AUTO 0.32 K/mm3 (0.00-0.68); EOSINOPHILS PERCENT AUTO 3 % (0-6); Hematocrit 37.5 % (37.0-53.0); Hemoglobin 12.4 g/dL (13.5-17.5); IMMATURE GRAN ABSOLUTE AUTO 0.03 K/mm3 (0.00-0.10); IMMATURE GRAN PERCENT AUTO 0 % (0-1); LYMPHOCYTES ABSOLUTE AUTO 2.09 K/mm3 (0.84-5.20); LYMPHOCYTES PERCENT AUTO 22 % (21-46); MONOCYTES ABSOLUTE AUTO 0.73 K/mm3 (0.16-1.47); MONOCYTES PERCENT AUTO 8 % (4-13); Mean Corpuscular HGB 28.3 pg (26.0-34.0); Mean Corpuscular HGB Conc 33.1 g/dL (31.5-36.5); Mean Corpuscular Volume 86 fL (80-100); Mean Platelet Volume 10.1 fL (9.1-12.4); NEUTROPHILS ABSOLUTE AUTO 6.11 K/mm3 (1.96-9.15); NEUTROPHILS PERCENT AUTO 66 % (41-73); Platelet Count 335 K/mm3 (150-400); RDW Coefficient Variation 14.9 % (11.7-14.2); Red Blood Cell Count 4.38 M/mm3 (4.30-5.90); White Blood Cell Count 9.34 K/mm3 (4.00-11.30)
[2023-08-05 18:17] LABS: U Amphetamine Screen DETECTED; U Barbituate Screen Not Detected; U Benzodiazapine Screen Not Detected; U Buprenorphine Screen Not Detected; U Cannabinoids Screen Not Detected; U Cocaine Screen Not Detected; U Methadone Screen Not Detected; U Methamphetamine Screen Not Detected; U Opiates Screen Not Detected; U Oxycodone Screen Not Detected; U Phencyclidine Screen Not Detected
[2023-08-05 18:44] LABS: Acetaminophen, Random <2.0 ug/mL (10.0-30.0); Salicylate 3.5 mg/dL (2.8-20.0); Valproic Acid 5.4 ug/mL (50.0-100.0)
[2023-08-05 19:05] LABS: Alanine Aminotransfer (ALT/SGP 27 U/L (12-78); Albumin, Blood 3.6 g/dL (3.4-5.0); Albumin/Globulin Ratio 1.1 (0.8-1.8); Alk Phos 68 U/L (50-136); Anion Gap 7 mmol/L (6-16); Aspartate Aminotrans (AST/SGOT 22 U/L (12-37); Bilirubin, Total 0.3 mg/dL (0.1-1.0); Blood Urea Nitrogen 13 mg/dL (8-24); Bun/Creatinine Ratio 22.6 (12.0-20.0); CO2, Blood 23 mmol/L (21-32); Calcium, Blood 7.8 mg/dL (8.5-10.1); Chloride, Blood 105 mmol/L (98-108); Creatinine, Blood 0.58 mg/dL (0.60-1.20); Ethanol (Alcohol), Blood, Med 316 mg/dL; Globulin, Blood 3.2 g/dL (2.2-4.0); Glomerular Filtration Rate 124 (60-); Glucose, Blood 130 mg/dL (70-99); Potassium, Blood 3.6 mmol/L (3.5-5.5); Sodium, Blood 135 mmol/L (136-145); Total Protein, Blood 6.8 g/dL (6.4-8.2)
[2023-08-06 01:00] VITALS: BP 118/91
== END 2023-08-06 01:31 | disposition left against medical advice (07) ==
LOC: ER 16:42 → EOR 16:43
PROVIDERS: ADMIT Emergency Medicine
DX: F10.129 Alcohol abuse with intoxication, unspecified (principal); F31.9 Bipolar disorder, unspecified; R41.82 Altered mental status, unspecified; Z88.8 Allergy status to other drugs, medicaments and biological substances; Z79.899 Other long term (current) drug therapy
CPT/HCPCS: 51702; 70450; 71045; 80053; 80164; 81003; 85025; 93005; 93010; 99285-25; G0378; G0480

== ENCOUNTER 2024-08-03 03:31 | Emergency (ER) | payer MEDICARE, OTHER ==
[~2024-08-03] VITALS: Ht 185.4 cm; Wt 72.6 kg
[~2024-08-03 03:31] MED LIST changes: +BANOPHEN50 M1; +BENZTROPINE MESY1 M6 PO; +DIVALPROEX SOD500 M2 PO; +HALOPERIDOL10 M2 PO; +OLAN20 MM; +ZESTRIL40 M2 PO; +[UNRECOGNIZED DRUG - OTHER] PO
[2024-08-03 03:58] VITALS: BP 159/103
== END 2024-08-03 04:20 | disposition home or self-care (01) ==
LOC: ER 03:31
DX: S90.821A Blister (nonthermal), right foot, initial encounter (principal); F17.210 Nicotine dependence, cigarettes, uncomplicated; Z88.8 Allergy status to other drugs, medicaments and biological substances; Z79.899 Other long term (current) drug therapy; X58.XXXA Exposure to other specified factors, initial encounter
CPT/HCPCS: 99283

== ENCOUNTER 2024-08-04 23:30 | Emergency (ER) | payer MEDICARE, OTHER ==
[~2024-08-04] VITALS: Ht 185.4 cm; Wt 77.1 kg
[2024-08-05 04:43] VITALS: BP 147/92
== END 2024-08-05 05:10 | disposition home or self-care (01) ==
LOC: ER 23:30
DX: L97.519 Non-pressure chronic ulcer of other part of right foot with unspecified severity (principal); M79.672 Pain in left foot; F17.210 Nicotine dependence, cigarettes, uncomplicated; Z88.6 Allergy status to analgesic agent
CPT/HCPCS: 99283

== ENCOUNTER 2025-01-10 16:14 | Emergency (ER) | payer MEDICARE, OTHER ==
[~2025-01-10] VITALS: Ht 188 cm; Wt 81.7 kg
[2025-01-10 16:45] VITALS: BP 123/86
[2025-01-10] MEDS ORDERED: Mupirocin 2% Ointment 22 GM TOP ONE (17:45)
== END 2025-01-10 17:05 | disposition home or self-care (01) ==
LOC: ER 16:14
DX: L55.0 Sunburn of first degree (principal); Z59.89 Other problems related to housing and economic circumstances
CPT/HCPCS: 99282; A9270

== ENCOUNTER 2025-05-04 14:46 | Emergency (ER) | payer MEDICARE, OTHER ==
[~2025-05-04] VITALS: Ht 182.9 cm; Wt 86.2 kg
[2025-05-04 14:55] VITALS: BP 125/98
== END 2025-05-04 16:15 | disposition home or self-care (01) ==
LOC: ER 14:46
DX: F25.9 Schizoaffective disorder, unspecified (principal); F17.200 Nicotine dependence, unspecified, uncomplicated
CPT/HCPCS: 99283

== ENCOUNTER 2025-06-18 00:51 | Emergency (ER) | payer MEDICARE, OTHER ==
[~2025-06-18] VITALS: Ht 185.4 cm; Wt 81.7 kg
[2025-06-18 01:49] VITALS: BP 138/96
[2025-06-18] MEDS ORDERED: HYDHCL25 PO (02:01)
== END 2025-06-18 02:06 | disposition home or self-care (01) ==
LOC: ER 00:51
DX: R45.851 Suicidal ideations (principal); F17.210 Nicotine dependence, cigarettes, uncomplicated; Z88.8 Allergy status to other drugs, medicaments and biological substances; Z59.00 Homelessness unspecified
CPT/HCPCS: 99283; A9270

== ENCOUNTER 2025-07-20 04:13 | Emergency (ER) | payer OTHER ==
[~2025-07-20] VITALS: Ht 185.4 cm; Wt 77.1 kg
[~2025-07-20 04:13] MED LIST changes: +HYDHCL25 PO
[2025-07-20 04:32] VITALS: BP 146/100
== END 2025-07-20 04:46 | disposition home or self-care (01) ==
LOC: ER 04:13
DX: Z00.8 Encounter for other general examination (principal); F25.0 Schizoaffective disorder, bipolar type; Z88.8 Allergy status to other drugs, medicaments and biological substances; Z79.899 Other long term (current) drug therapy
CPT/HCPCS: 99282

== ENCOUNTER 2025-08-05 09:38 | Observation (INO) | payer MEDICARE, OTHER ==
[~2025-08-05] VITALS: Ht 185.4 cm; Wt 81.7 kg
[2025-08-05 10:40] LABS: BASOPHILS ABSOLUTE AUTO 0.04 K/mm3 (0.00-0.23); BASOPHILS PERCENT AUTO 1 % (0-2); EOSINOPHILS ABSOLUTE AUTO 0.09 K/mm3 (0.00-0.68); EOSINOPHILS PERCENT AUTO 1 % (0-6); Hematocrit 41.7 % (37.0-53.0); Hemoglobin 14.0 g/dL (13.5-17.5); IMMATURE GRAN ABSOLUTE AUTO 0.02 K/mm3 (0.00-0.10); IMMATURE GRAN PERCENT AUTO 0 % (0-1); LYMPHOCYTES ABSOLUTE AUTO 1.73 K/mm3 (0.84-5.20); LYMPHOCYTES PERCENT AUTO 21 % (21-46); MONOCYTES ABSOLUTE AUTO 0.53 K/mm3 (0.16-1.47); MONOCYTES PERCENT AUTO 6 % (4-13); Mean Corpuscular HGB Conc 33.6 g/dL (31.5-36.5); Mean Corpuscular Volume 83 fL (80-100); NEUTROPHILS ABSOLUTE AUTO 5.90 K/mm3 (1.96-9.15); NEUTROPHILS PERCENT AUTO 71 % (41-73); NRBC ABSOLUTE 0.00 K/mm3 (0.00-0.02); NRBC Auto 0.0 /100 WBC (0.0-0.2); Platelet Count 299 K/mm3 (150-400); RDW Coefficient Variation 13.0 % (11.7-14.2); RDW Standard Deviation 39.1 fL (35.1-46.3)
[2025-08-05 11:31] LABS: Acetaminophen, Random <2.0 ug/mL (10.0-30.0); Alanine Aminotransfer (ALT/SGP 24 U/L (12-78); Albumin, Blood 3.7 g/dL (3.4-5.0); Albumin/Globulin Ratio 1.0 (0.8-1.8); Anion Gap 7 mmol/L (3-11); Aspartate Aminotrans (AST/SGOT 24 U/L (12-37); Bilirubin, Total 0.4 mg/dL (0.1-1.0); Blood Urea Nitrogen 10 mg/dL (8-24); CO2, Blood 28 mmol/L (21-32); Calcium, Blood 8.9 mg/dL (8.5-10.1); Chloride, Blood 104 mmol/L (98-108); Creatinine, Blood 0.70 mg/dL (0.60-1.20); Ethanol (Alcohol), Blood, Med <3 mg/dL; Globulin, Blood 3.6 g/dL (2.2-4.0); Glucose, Blood 77 mg/dL (70-99); Potassium, Blood 4.4 mmol/L (3.5-5.5); Salicylate <1.7 mg/dL (2.8-20.0); Sodium, Blood 135 mmol/L (136-145); Total Protein, Blood 7.3 g/dL (6.4-8.2)
[2025-08-05 13:45] LABS: Source, Urine Clean Catch
[2025-08-05 13:47] LABS: Bilirubin, Urine Neg (Neg); Color, Urine Yellow (P-Yellow); Glucose Qualitative, Urine Neg (Neg); Ketones, Urine Neg (Neg); Leukocyte Esterase, Urine 1+ (Neg); Protein, Urine 2+ (Neg); Specific Gravity, Urine 1.015 (1.003-1.022); Urobilinogen, Urine 1+ (Normal)
[2025-08-05 14:46] LABS: U Amphetamine Screen Not Detected; U Barbiturate Screen Not Detected; U Benzodiazapine Screen Not Detected; U Buprenorphine Screen Not Detected; U Cannabinoids Screen DETECTED; U Cocaine Screen Not Detected; U Methadone Screen Not Detected; U Methamphetamine Screen Not Detected; U Opiates Screen Not Detected; U Oxycodone Screen Not Detected; U Phencyclidine Screen Not Detected
[2025-08-05 14:52] LABS: Red Blood Cells, Urine 0-2 /hpf (0-2)
[2025-08-05 20:10] VITALS: BP 163/112
== END 2025-08-05 15:10 | disposition other institution (70) ==
LOC: ER 09:38 → EOR 09:39
PROVIDERS: Physician Assistant; ADMIT Student in an Organized Health Care Education/Training Program
DX: F31.9 Bipolar disorder, unspecified (principal); R45.851 Suicidal ideations; F25.9 Schizoaffective disorder, unspecified; F17.210 Nicotine dependence, cigarettes, uncomplicated; Z88.6 Allergy status to analgesic agent
CPT/HCPCS: 80053; 80320; 81001; 85025; 87086; 99285; G0378; G0480

== ENCOUNTER 2025-08-05 13:14 | Inpatient (IN) | payer MEDICARE, OTHER ==
[~2025-08-05] VITALS: Ht 185.4 cm; Wt 77.3 kg
[2025-08-05] MEDS ORDERED: Polyethylene Glycol 3350 17 gm PO PRN (14:35)
[2025-08-05] MEDS ORDERED: Ondansetron 4 MG SoluTab MM PRN (14:35)
[2025-08-05] MEDS ORDERED: FLU VACC TS2025-26(6MOS UP)/PF 45 MCG/0.5 ML SYRINGE IM SCH (14:40)
[2025-08-05] MEDS ORDERED: Aluminum Hydroxide 320MG/5ML 473 ML PO PRN (14:40)
[2025-08-05 15:39] VITALS: BP 149/95
--- NOTE | 2025-08-05 17:23 | NUR ---
ADMISSION SUMMARY PT ARRIVED TO [facility] COMING FROM [facility], TRANSPORTED OVER BY [facility] AND SECURITY. PT WAS DRESSED DOWN INTO GREEN SAFETY SCRUBS, SKIN CHECK COMPLETED BY THIS RN AND LUIS Brady, NO ISSUES WERE IDENTIFIED, HIS FEET WERE NOTED TO BE COVERED IN DRIED MUD. PT STS HE BROUGHT HIMSELF TO THE ER HE DIDN'T FEEL SAFE. "I WANTED TO COMMIT SUICIDE, I WAS GOING TO CUT MY WRISTS." PT IS VERY DIFFICULT TO UNDERSTAND, HE GRUMBLES/GRUNTS BUT CAN SPEAK CLEARLY WHEN ASKING FOR COFFEE. INITIALLY DENIED MENTAL HEALTH ISSUES BUT THEN STATED HAVING DEPRESSION. STS HAVING NO FAMILY/FRIENDS IN THE AREA, HE IS HOMELESS AND SOMETIMES STAY AT A [facility]. DENIES AN ILLICIT DRUG USE OR ETOH, HE WAS POSITIVE FOR THC. PT WAS ORIENTED TO THE UNIT, STATES UNDERSTANDING OF Q15 MIN SAFETY CHECKS, HE WAS PROVIDED TOWELS AND ENCOURAGED TO SHOWER.
--- NOTE | 2025-08-05 17:31 | NUR ---
SHIFT SUMMARY PT WOKE EASILY PRIOR TO BREAKFAST THIS SHIFT AND STATED HE HAD A DECENT NIGHT OF SLEEP. HE IS ALERT AND ORIENTED WITH GOOD EYE CONTACT AND CLEAR SPEECH WITH NORMAL TONE, PRESENTABLE HYGIENE, HAS BEEN COOPERATIVE IN CARE AND COMPLIANT WITH MEDICAION. PT HAS PARTICIPATED IN MEALS/SNACKS/GROUPS. HE HAS DENIED SI/HI/AVH. HE HAD A CHANCE TO SPEAK TO HIS PCI FROM [facility] THIS MORNING. THIS RN HAS SPOKE TO HIS PCI WELL, HER NAME IS PATTIE [phone], UPATED THE PT'S NMI FOR HER REPORT. PT HAS CONTINUED TO RECEIVED Q15 MIN VISUAL SAFETY CHECKS THROUGHOUT THE SHIFT.
--- NOTE | 2025-08-06 05:29 | NUR ---
SHIFT SUMMARY 45 YEAR-OLD MALE PRESENTS MODERATELY GROOMED. HE IS ALERT AND ORIENTED. HIS SPEECH IS DIFFICULT TO UNDERSTAND HE MUMBLES SOFT VOLUME. HE IS ABLE TO MAKE AND KEEP EYE CONTACT DURING CONVERSATIONS. AT THE TIME OF HIS ASSESSMENT, HE DESCRIBED HIS MOOD SICK. HE ALSO DENIED SI, HI, AND AVTH AT THAT TIME, BUT LATER IN THE SHIFT WAS NOTED TO BE YELLING OUT AND RESPONDING TO INTERNAL STIMULI UNTIL APPROXIMATELY 0200 HOURS. HE ATTENDED SNACK, BUT DECLINED DAY ROOM. HE OPTED TO RETURN TO HIS BED AFTER SNACK TIME. HE WAS COMPLIANT WITH CARE AND MEDICATION ADMINISTRATION. HE DID NOT REQUEST ANY MEDICATIONS. HE CONTINUES TO BE MONITORED EVERY 15 MINUTES FOR WELLNESS AND SAFETY.
[2025-08-06 08:35] VITALS: BP 145/107
[2025-08-06] MEDS ORDERED: Multivitamins 1 Tab PO SCH (09:00)
--- NOTE | 2025-08-06 12:15 | NUR ---
PRN ZYPREXA 10MG GIVEN FOR MASS SCORE GREATER THAN 9. PT IN ROOM YELLING PROFANITIES AND SLAMMING DOORS. WHEN ASKED IF HE WAS OKAY HE WAS YELLING THAT HE "DOESNT LIKE NIGGERS IN HIS ROOM" HE WAS WILLING TO TAKE MEDICATION. HE WAS ABLE TO CALM AND IS NOW TAKING A SHOWER
--- NOTE | 2025-08-06 13:50 | NUR ---
PT OUT OF SHOWER AND YELLING PROFANITIES IN HIS ROOM SECOND ZYPREXA GIVEN WITH GOOD RESULTS. PT IS IN HIS ROOM RESTING EYES CLOSED. RR EVEN AND UNLABORED.
--- NOTE | 2025-08-06 16:27 | NUR ---
SHIFT SUMMARY PT IS AA&O TO ALL. HE IS PLEASANT AND COOPERATIVE WITH CARE. HE IS MODESTLY GROOMED. HE REPORTS HIS MOOD FINE, BUT THAT HE WANTS A CIGARETTE. PT OFFERED NICOTINE REPLACEMENT AND DECLINED. HE VERBALIZED UNDERSTANDING IF HE CHANGED HIS MIND TO TALK TO RN. HE IS NOT TAKING ANY MEDICATIONS AT THIS TIME. HE DENIES SI, HI. AVH. APPETITE IS GOOD. REPORTS HE SLEPT WELL. HAS BEEN PARTICIPATING AND IS GETTING ALONG WELL WILL PEERS AND STAFF. WILL CONTINUE POC
--- NOTE | 2025-08-06 16:51 | NUR ---
SHIFT SUMMARY PT AA&O TO PERSON, PLACE, AND SITUATION. HE IS DIFFICULT TO ASSESS AND UNDERSTAND. HE MUMBLES WHEN ASKED QUESTIONS. HE IS NOT CLEAR WITH HIS ANSWERS. HE APPEARED TO SAY YES WHEN ASKED IF HE FELT SUICIDAL, WHEN ASKED AGAIN TO CLARIFY HE STATED NO. HE WAS LOUD AND INAPROPRIATE THIS MORNING. HE THREW COFFEE AND GARBAGE AROUND ROOM AND RIPPED OFF BATHROOM DOOR. HE WAS MEDICATED 2X WITH ZYPREXA WITH GOOD RESULTS. HE DID CLEAN UP HIS MESS WHEN INSTUCTED TO BY THIS RN. HE THEN SLEPT MOST OF THE AFTERNOON. HE WOKE UP COOPERATIVE AND SIGNED ADMISSION PAPERS FOR THIS RN. WILL CONTINUE POC.
[2025-08-06 20:22] VITALS: BP 165/103
--- NOTE | 2025-08-07 05:02 | NUR ---
SHIFT SUMMARY 45 YEAR-OLD MALE PRESENTS MODERATELY GROOMED. HE IS ALERT AND ORIENTED. HIS SPEECH IS DIFFICULT TO UNDERSTAND HE MUMBLES SOFT VOLUME. HE IS ABLE TO MAKE AND KEEP EYE CONTACT DURING CONVERSATIONS. AT THE TIME OF HIS ASSESSMENT, HE WAS NOT ABLE TO ARTICULATE HIS MOOD HE WAS ACTIVELY RESPONDING TO INTERNAL STIMULI. HE ALSO DENIED SI, HI, AND AVTH AT THAT TIME. HE ATTENDED SNACK, BUT DECLINED DAY ROOM. HE OPTED TO RETURN TO HIS BED AFTER SNACK TIME. HE WAS COMPLIANT WITH CARE AND MEDICATION ADMINISTRATION. HE RECEIVED THE FOLLOWING PRN MEDICATIONS: ZYPREXA ZYDIS 10MG FOR ANXIETY AND AGITATION AT 1929 (MASS=10). HE CONTINUES TO BE MONITORED EVERY 15 MINUTES FOR WELLNESS AND SAFETY.
--- NOTE | 2025-08-07 05:03 | NUR ---
PRN NOTE PATIENT RECEIVED THE FOLLOWING PRN MEDICATIONS DURING CAREER CONSULTANT: ZYPREXA ZYDIS 10MG FOR ANXIETY AND AGITATION AT 1929 (MASS=10).
[2025-08-07 08:51] LABS: CHOL/HDL RATIO 2.7; Cholesterol 130 mg/dL (50-200); HDL Cholesterol 49 mg/dL (>39); LDL/HDL RATIO 1.2; Low Density Lipoprotein Chol 59 mg/dL (0-110); Triglycerides 111 mg/dL (30-160); Very Low Density Lipoprot Chol 22 mg/dL (6-32)
[2025-08-07 08:58] VITALS: BP 145/95
--- NOTE | 2025-08-07 11:52 | NUR ---
PRN ZYPREXA 10MG GIVEN FOR A MASS SCORE GREATER THAN 9. PT VERBALLY ESCALATING REPONDING TO INTERNAL STINULI. HE IS UPSET BECAUSE HE DOES NOT LIKE "THOSE NIGGERS" IN HIS ROOM AND IS YELLING FOR THEM TO "GET OUT" HE WILLINGLY TOOK MEDICATION. PT IS STILL RESPONDING BUT IS NO LONGER YELLING AT THIS TIME
--- NOTE | 2025-08-07 13:37 | NUR ---
PT IS HAVING A DIFFICULT TIME WITH INTERNAL STIMULI. HE IS AGRUING LOUD WITH VOICES. HE IS REPEATEDLY YELLING FOR THEM TO GET OUT OF HIS ROOM AND SLAMMING DOORS. HE IS NOT AGGRESIVE TOWARDS STAFF OR PEERS. dR. MCKEON NOTIFIED. RECIEVED A ONE TOME ORDER FOR HALDOL 10MG AND VISTRIL 50MG. ALSO RECIEVED AN ORDER FOR HALDOL 5MG BID AND VISTRIL 50MG BID. PT MEDICATED ACCORDINGLY
--- NOTE | 2025-08-07 16:46 | NUR ---
SHIFT SUMMARY PT IS AA&O TO SELF. SPEECH IS TANGENTAL AND DISORGANIZED. HE IS RESPONDING TO INTERNAL STIMULI. HE IS USING INAAPROPRIATE LANGUAGE AT TIMES AND SLAMMING HIS DOOR OFTEN. HE IS FRUSTRATED AND YELLS AT STIMULI TO LEAVE HIM ALONE AND GET OUT OF ROOM. HYGEINE IS POOR AND REQUIRES PROMPTS FOR SELF CARE. HE IS NOT VIOLENT TOWARDS STAFF OR PEERS. MD NOTIFIED AND MEDICATIONS ADJUSTED. PLEASE SEE PREVIOUS NOTE. HE IS DIFFICULT TO ASSESS BUT DOES ENDORSE AH. WILL CONTINUE POC
--- NOTE | 2025-08-08 05:43 | NUR ---
SHIFT SUMMARY 45 YEAR-OLD MALE PRESENTS MODERATELY GROOMED. HE IS ALERT AND ORIENTED. HIS SPEECH IS DIFFICULT TO UNDERSTAND HE MUMBLES SOFT VOLUME. HE IS ABLE TO MAKE AND KEEP EYE CONTACT DURING CONVERSATIONS. AT THE TIME OF HIS ASSESSMENT, HE WAS NOT ABLE TO ARTICULATE HIS MOOD, HE WAS ACTIVELY RESPONDING TO INTERNAL STIMULI. HE ALSO DENIED SI, HI, AND AVTH AT THAT TIME. HE ATTENDED SNACK, BUT DECLINED DAY ROOM. HE OPTED TO RETURN TO HIS BED AFTER SNACK TIME. HE WAS COMPLIANT WITH CARE AND MEDICATION ADMINISTRATION. HE DID NOT REQUEST ANY PRN MEDICATIONS. HE CONTINUES TO BE MONITORED EVERY 15 MINUTES FOR WELLNESS AND SAFETY.
[2025-08-08 08:41] VITALS: BP 142/106
--- NOTE | 2025-08-08 17:49 | NUR ---
SHIFT SUMMARY PT WAS COOPERATIVE WITH MEDICATIONS. HIS SPEACH IS LOW VOLUME AND TANSGENTIAL, WITH SUDDEN YELLING OUTBURSTS OF RANDOM SENTENCES MOSTLY WITH PROFANITY. PT IS CALM AND SPENT MOST OF HIS TIME IN HIS ROOM, BUT CAME OUT OCCASSIONALLY FOR MEALS, SNACKS, AND ATTEMPTED TO ATTEND SOME GROUPS. HE WAS GIVEN PRN ZYPREXA AND PRN VISTIRIL, SEE MASS SCORES AND MAR. PT APPEARS TO RESPOND TO INTERNAL STIMULI BY SPEAKING TO SOMEONE THAT IS NOT THERE, YET HE DENIED SI/HI/AVTH. EARLIER IN THE AFTERNOON JESSA LEAHY, REPORTED TO THIS RN THAT SHE FOUND PT'S BATHROOM WITH FECES SMEARED ON ALL THE TURNER, FECES COVERED WASH CLOTHES PILED UP UNDER PT'S SINK, AND A BLANKET WITH FECES ON IT. WHEN SHE OFFERED TO SPEAK TO RN, FOR PT, HE YELLED AT HER "GET THE FUCK OUT BITCH!" IN THE EVENING MORE FECES WAS FOUND BY AUBREY JOY, SMEARED ON WHITE BLANKET FROM PT'S BED AND THROWN ONTO THE OTHER BED IN PT'S ROOM. PT SHOWERED SELF AND WAS GIVEN TOWELS AND SCRUBS TO CHANGE INTO. PT ALSO HAD AN [employer] SOFTWARE SUPPORT SPECIALIST SHOW UP TO VISIT HIM BUT PT REFUSED VISIT.
[2025-08-08 20:51] VITALS: BP 146/92
--- NOTE | 2025-08-08 22:08 | NUR ---
PT DOES NOT INTERACT IN [facility] IN [facility]ED OR ATTENDS SNACK ONLY. NOTED BLOOD ON FINGERS. PT REFUSES TO TELL RN WHERE BLOOD IS FROM. APPEARS TO BE OLD, DRIED, CRUSTED.
--- NOTE | 2025-08-09 00:37 | NUR ---
ASSUMPTION OF CARE ASSUMED CARE OF PATIENT FROM DALILA STERN AT 2340. HE IS CURRENTLY RESTING QUIETLY IN HIS BED. NO SIGNS OF ACUTE DISTRESS NOTED. HE RECEIVED TO FOLLOWING PRN MEDICATIONS PRIOR IN THE SHIFT: TRAZADONE 50MG FOR SLEEP AT 2054.
--- NOTE | 2025-08-09 04:55 | NUR ---
END OF SHIFT SUMMARY PATIENT HAS SLEPT SINCE THIS ENVIRONMENTAL OFFICER ASSUMED CARE AT 2345. NO PRN MEDICATIONS WERE UTILIZED. PATIENT DOES NOT SEEM TO BE IN ANY ACUTE DISTRESS. THEY CONTINUES TO BE MONITORED EVERY 15 MINUTES FOR WELLNESS AND SAFETY.
[2025-08-09 09:07] VITALS: BP 148/97
--- NOTE | 2025-08-09 17:39 | NUR ---
SHIFT SUMMARY PT DENIES SI/HI. HE CONTINUES TO RESPOND TO INTERNAL STIMULI AND OCCASSIONALLY YELLS OUT PROFANITIES. HE DENIES HEARING OR SEEING HAULLUCINATIONS BUT APPEARS TO STRUGGLE WITH THE INTERNAL STIMULI. PT CONTINUES TO WIPE HIS FECES ON THE TURNER AND FLOOR OF HIS ROOM. ANOTHER BLANKET WITH FECES WIPED ON IT WAS FOUND ON THE EMPTY BED IN HIS ROOM AGAIN. PT WAS ALSO FOUND MASTURBATING ON HIS BED AND WHEN DALILA GRIFFITH SET UNIT EXPECTATIONS AND BOUNDARIES PT SHORTLY CAME OUT OF HIS ROOM AGITATED AND SLAMMED THE DOOR A COUPLE TIMES. HE WAS THEN MEDICATED WITH ZYPREXA PRN. PT IS COMPLIANT WITH MEDICATIONS AND MEALS, BUT DOES NOT ATTEND GROUPS. HE STAYS IN HIS ROOM MOST OF THE DAY. HE DID SHOWER THIS AFTERNOON ON HIS OWN AND CHANGED HIS SCRUBS. ATTEMPTS TO SET BOUNDARIES AND EXPECTATIONS WITH THE FECAL MATTER HAVE NOT BEEN SUCCESSFUL.
--- NOTE | 2025-08-09 23:35 | NUR ---
MID SHIFT SUMMARY PT LAYING IN BED, RESPONDING TO INTERNAL STIMULI AT START OF SHIFT. HE YELLS WHEN RESPONDING TO INTERNAL STIMULI. VOICE IS SOFT WHEN SPEAKING TO STAFF, AT TIMES MUMBLES. PT DENIES ANY SI OR HI. HE REPORTS AUDITORY AND VISUAL HALLUCINATIONS WHERE HE SEES AND HEARS PEOPLE. HE WAS NOT ABLE TO ELABORATE ON WHAT THE VOICES ARE SAYING. HE HAD EVENING SNACK. DECLINED TO PARTICIPATE IN WRAP UP GROUP. HE WAS COMPLIANT WITH MEDS AND RECEIVED PRN TRAZODONE TO ASSIST WITH DIFFICULTY SLEEPING. AT APPROXIMATELY 2230, PT YELLING IN HIS ROOM, RESPONDING TO INTERNAL STIMULI, STATES "GET OUT OF MY HEAD OR I'M GOING TO BITCH SLAP YOU". MASS SCORE OF 8 AND PT RECEIVED PRN ZYPREXA WITH POOR AFFECT. AT APPROXIMATELY 2315 PT LOUDER YELLER, SLAMING HIS DOOR, MASS SCORE OF 9 AND RECEIVED PO ATIVAN, BENADRYL AND HALDOL. WILL CONTINUE TO MONITOR Q15 MINUTES FOR PT SAFETY AND WELLNESS.
--- NOTE | 2025-08-10 04:36 | NUR ---
END OF SHIFT UPDATE PT DID NOT FALL ASLEEP UNTIL APPROXIMATLEY 0245, HE HAS SLEPT LESS THAN 2 HOURS. HE IS CURRENTLY AWAKE IN HIS ROOM, RESTING QUIETLY. Q15 MINUTE CHECKS TO CONTINUE PER PT SAFETY AND WELLNESS.
[2025-08-10 08:18] VITALS: BP 132/92
--- NOTE | 2025-08-10 17:53 | NUR ---
SHIFT SUMMARY: PT IS COOPERATIVE WITH CARE AND COMPLIANT WITH MEDICATIONS. HE DENIES SI AND HI. STATES THAT HIS MOOD IS "I'M GOOD, IT'S FINE" HE HAS A CONSTRICTED AND FLAT AFFECT. WHEN ASKED ABOUT HIS AVH HE STATES "VOICES ARE BETTER, THEY ARE LESS". STATED "THANK YOU MA'AM" WHEN OUR CONVERSATION WAS OVER. THROUGHOUT THE DAY PT ASKED REPETITIVE QUESTIONS ABOUT HIS SOCIAL SECURITY, WHEN HE WILL DISCHARGE AND HIS ID. PT APPEARED TO HAVE INCREASED AGGITATION IN THE EVENING, WALKING IN THE WHITTAKER YELL AND SLAMMING HIS DOOR. PER THIERNO Lesly WHEN SHE ATTEMEPTED TO REDIRECT PATIENTS BEHAVIOR HE TOLD HER TO "SHUT UP" "I JUST WANT TO MASTURBATE". PT CONTINUED TO WALK IN THE WHITTAKER YELLING, APPEARED TO BE RESPONDING TO INTERNAL STIMULI. PT MEDICATED PER EMAR WITH ZYPREXA PRN FOR MASS SCORE OF 9. PT ASKED "WHEN DO I GET TO LEAVE" ENCOURAGED PT TO TALK THE PROVIDER IN THE MORNING DURING ROUNDS ABOUT DISCHARGE. PT STATED "OK". PT MONITORED WITH Q 15 MIN CHECKS FOR SAFETY PER UNIT PROTOCL.
[2025-08-10 20:10] VITALS: BP 131/86
--- NOTE | 2025-08-11 05:07 | NUR ---
SHIFT SUMMARY 45 YEAR-OLD MALE PRESENTS WITH FAIR GROOMING. HE IS ALERT AND ORIENTED TO SELF, PLACE, AND TIME. HE SPEAKS IN A CLEAR VOICE AND IN AN APPROPRIATE VOLUME. HE IS ABLE TO MAKE AND KEEP EYE CONTACT DURING CONVERSATIONS. AT THE TIME OF HIS ASSESSMENT, HE DESCRIBED HIS MOOD "I'M OK. GET ME OUT OF HERE." HE ALSO DENIED SI, HI, AND AVTH AT THAT TIME. HE ATTENDED SNACK AND THEN RETURNED TO HIS BED. HE WAS COMPLIANT WITH CARE AND MEDICATION ADMINISTRATION. HE DID NOT RECEIVE ANY PRN MEDICATIONS THIS SHIFT. HE CONTINUES TO BE MONITORED EVERY 15 MINUTES FOR WELLNESS AND SAFETY.
[2025-08-11 09:08] VITALS: BP 126/108
[2025-08-11] MEDS ORDERED: RISP2 PO (09:39)
[2025-08-11] MEDS ORDERED: Haldol 5 mg Tab5 MG PO (09:39)
[2025-08-11] MEDS ORDERED: MIRT15 PO (09:39)
--- NOTE | 2025-08-11 09:57 | NUR ---
DISCHARGE NOTE: PT LEFT AMA THIS AM. AFTER BREAKFAST PT TOOK PO MEDICATIONS AND REFUSED INVEGA INJECTION. PT BECAME INCREASINGLY AGGITATED WHILE THIS RN ATTEMPTED TO ASSESS AND TALK WITH HIM. PT STATES, "I WANT TO LEAVE NOW". PT LEFT HIS ROOM STARTED WALKING TOWARD THE UNIT DOOR. ASKED PT IF HE WOULD LIKE TO SPEAK WITH DR. MCKEON ABOUT DISCHARGING, HE DECLINED PRIOR TO SPEAK WITH THE DOCTOR. PT STATED "NO, ARE YOU RETARDED, I WANT TO LEAVE NOW". PT WALKED FORCEFULLY TO THE DOOR AND STARTED HITTING THE WINDOW, RAISED HIS VOICE AND STATED, "LET ME OUT NOW". PROVIDER CONTACTED BY [facility] AND AMA DISCHARGE ORDER PLACED. [facility] CONTACTED BY [employer]. THEY ARE UNABLE TO PROVIDE TRANSPORT FOR PT. PT NOTIFIED AND STATED IN A RAISED VOICE "JUST LET ME LEAVE". SECURITY TO UNIT FOR STANDBY. PT SIGNED AMA FORM AND PROVIDED WITH DISCHARGE INSTRUCTIONS. AWARE THAT MEDICATIONS WERE SENT TO [place] AND ENCOURAGED TO FOLLOW UP WITH [facility]. PT DRESSED, DECLINED OFFER FOR SNACKS AND RESOURCES FROM [employer] RN. HE AMBULATED OUT OF UNIT WITH BELONGINGS AND DISCHARGE INSTRUCTIONS IN HAND. SECURITY STANDBY ESCORTED PT OUT OF UNIT.
== END 2025-08-11 09:55 | disposition left against medical advice (07) | DRG 885 ==
LOC: BHU 13:14
PROVIDERS: ADMIT Psychiatry & Neurology Psychiatry
DX: F20.0 Paranoid schizophrenia (principal); R45.851 Suicidal ideations; Z53.29 Procedure and treatment not carried out because of patient's decision for other reasons; F15.10 Other stimulant abuse, uncomplicated; F10.90 Alcohol use, unspecified, uncomplicated; F17.210 Nicotine dependence, cigarettes, uncomplicated; Z88.8 Allergy status to other drugs, medicaments and biological substances; Z79.899 Other long term (current) drug therapy; Z91.51 Personal history of suicidal behavior; Z28.21 Immunization not carried out because of patient refusal
CPT/HCPCS: 36415; 80061; 83036; A9270

== ENCOUNTER 2025-08-14 03:51 | Emergency (ER) | payer MEDICARE, OTHER ==
[~2025-08-14] VITALS: Ht 185.4 cm; Wt 81.7 kg
[~2025-08-14 03:51] MED LIST changes: +Haldol 5 mg Tab5 MG PO; +MIRT15 PO; +RISP2 PO
[2025-08-14 04:27] VITALS: BP 149/99
== END 2025-08-14 04:45 | disposition home or self-care (01) ==
LOC: ER 03:51
DX: S90.822A Blister (nonthermal), left foot, initial encounter (principal); S90.821A Blister (nonthermal), right foot, initial encounter; X58.XXXA Exposure to other specified factors, initial encounter; Z87.891 Personal history of nicotine dependence; Z79.899 Other long term (current) drug therapy; Z88.6 Allergy status to analgesic agent
CPT/HCPCS: A9270

== ENCOUNTER 2025-08-30 06:42 | Emergency (ER) | payer MEDICARE, OTHER ==
[~2025-08-30] VITALS: Ht 185.4 cm; Wt 81.7 kg
[2025-08-30 07:12] VITALS: BP 153/106
== END 2025-08-30 09:17 | disposition home or self-care (01) ==
LOC: ER 06:42
DX: S90.822A Blister (nonthermal), left foot, initial encounter (principal); X58.XXXA Exposure to other specified factors, initial encounter; Z87.891 Personal history of nicotine dependence
CPT/HCPCS: 99282

== ENCOUNTER 2025-08-30 13:18 | Emergency (ER) | payer MEDICARE, OTHER ==
[~2025-08-30] VITALS: Ht 172.7 cm; Wt 86.2 kg
== END 2025-08-30 14:09 | disposition home or self-care (01) ==
LOC: ER 13:18
DX: S80.812A Abrasion, left lower leg, initial encounter (principal); X58.XXXA Exposure to other specified factors, initial encounter
CPT/HCPCS: 99282

== ENCOUNTER 2025-08-30 20:22 | Emergency (ER) | payer MEDICARE, OTHER ==
[~2025-08-30] VITALS: Ht 177.8 cm; Wt 81.7 kg
== END 2025-08-30 20:49 | disposition home or self-care (01) ==
LOC: ER 20:22
DX: S90.415A Abrasion, left lesser toe(s), initial encounter (principal); S90.414A Abrasion, right lesser toe(s), initial encounter; F17.210 Nicotine dependence, cigarettes, uncomplicated; X58.XXXA Exposure to other specified factors, initial encounter; Z79.899 Other long term (current) drug therapy
CPT/HCPCS: 99282